=== PATIENT | female | born 1955 | race African-American/Black ===

== ENCOUNTER 2018-09-06 03:05 | Inpatient (IN) | payer MEDICARE ==
--- NOTE | 2018-09-06 03:27 | ER Document Report ---
ED General <ZURDO ASCENCIO - Last Filed: 09/06/18 05:55> <PHANI AHUJA - Last Filed: 09/06/18 07:53> - General Chief Complaint: Altered Mental Status Stated Complaint: BLOOD SUGAR PROBLEMS Time Seen by Provider: 09/06/18 03:13 Notes: Patient is a 63-year-old female who presents with complaint of being poorly responsive. Family members at bedside. She is currently visiting from out of town. She is been here since August 22. Family says since being here she sleeps most the day. When she wakes up she is alert and acts appropriately. Tonight they found her unresponsive. She would not wake up. Blood sugar was 27 for the paramedics. They did give her gone and she did she wake up; however, since then blood sugars been okay and she has returned to being somnolent and poorly responsive. She does wear CPAP at night. Found members says that she has been wearing it. In review of her medications she has a history of high blood pressure, possible coronary disease, she is on Seroquel and trazodone suggesting some history of some psychiatric illness, she has a history of diabetes, history of her blood pressure. The only sedating medicines that I see that she is on is the trazodone and Seroquel. (ZURDO ASCENCIO) - Related Data Allergies/Adverse Reactions: Penicillins Allergy (Verified 09/06/18 03:33) Past Medical History - Social History Smoking Status: Unknown if Ever Smoked Frequency of alcohol use: None Drug Abuse: None Family History: Reviewed & Not Pertinent <ZURDO ASCENCIO - Last Filed: 09/06/18 05:55> Review of Systems - Review of Systems -: Yes ROS unobtainable due to patient's medical condition - Patient is unresponsive <ZURDO ASCENCIO - Last Filed: 09/06/18 05:55> Physical Exam <ZURDO ASCENCIO - Last Filed: 09/06/18 05:55> - Vital signs Vitals: Resp Pulse Ox 24 H 94 09/06/18 03:11 09/06/18 03:11 - Notes Notes: General Appearance: Patient very somnolent. She is awake but by yelling her name but she only briefly opens her eyes and closes them again. She will not answer my questions. Vitals: reviewed, See vital signs table. Head: no swelling or tenderness to the head Eyes: PERRL, EOMI, Conjuctiva clear Mouth: No decreasd moisture Throat: No tonsillar inflammation, No airway obstruction, No lymphadenopathy Neck: Supple, no neck tenderness, No thyromegaly Lungs: No wheezing, No rales, No rhonci, No accessory muscle use, good air exchange bilaterally. Heart: Normal rate, Regular rythm, No murmur, no rub Abdomen: Normal BS, soft, No rigidity, No abdominal tenderness, No guarding, no rebound, no abdominal masses, no organomegaly Extremities: strength 5/5 in all extremities, good pulses in all extremities, no swelling or tenderness in the extremities, 1+ bilateral lower extremity edema. Skin: warm, dry, appropriate color Neuro: Patient very somnolent. Patient is arousable with verbal or painful stimuli but then falls immediately back to sleep. Pupils are equal and reactive. His difficult to get patient to follow commands to perform further neuro exam. (ZURDO ASCENCIO) Course - Laboratory Result Diagrams: 09/06/18 04:53 09/06/18 04:53 <ZURDO ASCENCIO - Last Filed: 09/06/18 05:55> - Laboratory Result Diagrams: 09/06/18 04:53 09/06/18 04:53 <PHANI AHUJA - Last Filed: 09/06/18 07:53> - Re-evaluation Re-evalutation: 09/06/18 05:55 His urinalysis did show UTI. I did start her on Rocephin. Her chest x-ray later was read as possible pneumonia. This also could be fluid. I have given her a dose of Lasix. I will cover with Levaquin as it is not 100% clear exactly which when she has. She has been placed on BiPAP due to her hypercapnia. Between her infection and her hypercapnia this would explain why she is somnolent. She is starting to become little bit more awake more often. I will contact hospitalist about admission. (ZURDO ASCENCIO) - Vital Signs Vital signs: Temp Pulse Resp BP Pulse Ox 97.4 F 75 19 144/87 H 95 09/06/18 05:30 09/06/18 07:27 09/06/18 07:01 09/06/18 07:01 09/06/18 06:20 - Laboratory Laboratory results interpreted by me: 09/06/18 09/06/18 09/06/18 03:16 04:27 04:41 WBC Hgb MCH MCHC RDW Seg Neutrophils % Lymphocytes % Absolute Neutrophils VBG pH VBG pCO2 VBG HCO3 Sodium BUN Creatinine Est GFR ( Amer) Est GFR (Non-Af Amer) POC Glucose 177 H 132 H Ammonia Urine Protein 30 H Urine Blood SMALL H Urine Nitrite POSITIVE H Ur Leukocyte Esterase MODERATE H 09/06/18 09/06/18 09/06/18 04:53 04:53 04:53 WBC 12.1 H Hgb 11.2 L MCH 25.7 L MCHC 30.6 L RDW 20.2 H Seg Neutrophils % 82.8 H Lymphocytes % 9.4 L Absolute Neutrophils 10.0 H VBG pH VBG pCO2 VBG HCO3 Sodium 145.4 H BUN 40 H Creatinine 1.59 H Est GFR ( Amer) 40 L Est GFR (Non-Af Amer) 33 L POC Glucose Ammonia < 8.7 L Urine Protein Urine Blood Urine Nitrite Ur Leukocyte Esterase 09/06/18 04:53 WBC Hgb MCH MCHC RDW Seg Neutrophils % Lymphocytes % Absolute Neutrophils VBG pH 7.22 L VBG pCO2 80.6 H* VBG HCO3 32.5 H Sodium BUN Creatinine Est GFR ( Amer) Est GFR (Non-Af Amer) POC Glucose Ammonia Urine Protein Urine Blood Urine Nitrite Ur Leukocyte Esterase - EKG Interpretation by Me Additional EKG results interpreted by me: 09/06/18 04:24 EKG is reviewed and interpreted by me. EKG shows sinus rhythm with a rate of [address] segment elevation or depression. No ischemic T wave inversions. PA interval, QRS duration are within normal range. QT interval is slightly pr olonged. No old EKG available for comparison. (ZURDO ASCENCIO) Discharge <ZURDO ASCENCIO - Last Filed: 09/06/18 05:55> - Discharge Admitting Provider: Jyoti (Hospitalist) Unit Admitted: [facility] <PHANI AHUJA - Last Filed: 09/06/18 07:53> - Discharge Clinical Impression: Acute respiratory failure with hypoxia and hypercarbia, Hypoglycemia Pneumonia Qualifiers: Pneumonia type: due to unspecified organism Laterality: unspecified laterality Lung location: unspecified part of lung Qualified Code(s): J18.9 - Pneumonia, unspecified organism UTI (urinary tract infection) Qualifiers: Urinary tract infection type: site unspecified Hematuria presence: without hematuria Qualified Code(s): N39.0 - Urinary tract infection, site not specified Condition: Fair Disposition: ADMITTED INPATIENT
[2018-09-06 05:07] LABS: ABSOLUTE EOSINOPHILS # (AUTO) 0.1 10^3/uL (0.0-0.6); ABSOLUTE LYMPHOCYTES (AUTO) 1.1 10^3/uL (0.5-4.7); ABSOLUTE MONOCYTES (AUTO) 0.8 10^3/uL (0.1-1.4); BASOPHILS % (AUTO) 0.1 % (0-2); EOSINOPHILS % (AUTO) 0.9 % (0-6); HEMATOCRIT 36.6 % (36.0-47.0); HEMOGLOBIN 11.2 g/dL (12.0-15.5); LYMPHOCYTES % (AUTO) 9.4 % (13-45); MEAN CORPUSCULAR HEMOGLOBIN 25.7 pg (27.0-33.4); MEAN CORPUSCULAR HGB CONC 30.6 g/dL (32.0-36.0); MEAN CORPUSCULAR VOLUME 84 fl (80-97); MONOCYTES % (AUTO) 6.8 % (3-13); PLATELET COUNT 200 10^3/uL (150-450); RED BLOOD COUNT 4.37 10^6/uL (3.72-5.28); RED CELL DISTRIBUTION WIDTH 20.2 % (11.5-14.0); SEGMENTED NEUTROPHILS % (AUTO) 82.8 % (42-78); TOTAL CELLS COUNTED % (AUTO) 100 %; WHITE BLOOD COUNT 12.1 10^3/uL (4.0-10.5)
[2018-09-06 05:09] LABS: APPEARANCE,URINE CLOUDY; BILIRUBIN,URINE NEGATIVE (NEGATIVE); COLOR,URINE YELLOW; GLUCOSE, URINE NEGATIVE (NEGATIVE); KETONES,URINE NEGATIVE (NEGATIVE); LEUKOCYTE ESTERASE,URINE MODERATE (NEGATIVE); NITRITE,URINE POSITIVE (NEGATIVE); PROTEIN,URINE 30 mg/dL (NEGATIVE); URINE SPECIFIC GRAVITY 1.017; UROBILINOGEN,URINE NEGATIVE mg/dL (<2.0)
[2018-09-06 05:20] LABS: VENOUS BLOOD BASE EXCESS 2.5 mmol/L; VENOUS BLOOD HCO3 32.5 mmol/L (20-32); VENOUS BLOOD PH 7.22 (7.30-7.42)
[2018-09-06 05:20] LABS: URINE AMPHETAMINES SCREEN NEGATIVE; URINE BARBITURATES SCREEN NEGATIVE; URINE BENZODIAZEPINES SCREEN NEGATIVE; URINE COCAINE SCREEN NEGATIVE; URINE MARIJUANA (THC) SCREEN NEGATIVE; URINE METHADONE SCREEN NEGATIVE; URINE PHENCYCLIDINE SCREEN NEGATIVE
[2018-09-06 05:29] LABS: VENOUS BLOOD PCO2 80.6 mmHg (35-63)
--- NOTE | 2018-09-06 05:33 | RADIOLOGY REPORT (SQ) ---
CLINICAL HISTORY: altered mental status COMPARISON: None. TECHNIQUE: CT HEAD WITHOUT IV CONTRAST on 09/06/2018 3:21 AM CDT This exam was performed according to our departmental dose-optimization program, which includes automated exposure control, adjustment of the mA and/or kV according to patient size and/or use of iterative reconstruction technique. FINDINGS: There is no acute hemorrhage, mass effect or midline shift. Bender-white differentiation is preserved. There is no hydrocephalus. There is no significant volume loss for age. There are mild patchy hypodensities within the periventricular and subcortical white matter, consistent with microangiopathic ischemic changes. The calvarium is intact. Orbits and globes are unremarkable. The paranasal sinuses are clear. Mastoid air cells are clear. IMPRESSION: No acute intracranial findings.
--- NOTE | 2018-09-06 05:34 | RADIOLOGY REPORT (SQ) ---
EXAM DESCRIPTION: XR CHEST 1 VIEW COMPLETED DATE/TME: 09/06/2018 03:21 CLINICAL HISTORY: 63 years Female, altered mental status COMPARISON: None. NUMBER OF VIEWS/TECHNIQUE: 1/AP FINDINGS: Adequate lung volume, moderate central edema pattern, moderate left lower thoracic opacity-effusion, normal cardiac silhouette, and intact bony thorax.Atherosclerotic vascular disease. IMPRESSION: Moderate mixed interstitial and airpace opacities. Differential diagnosis includes pulmonary edema, multifocal pneumonia, and chronic interstitial lung disease.
[2018-09-06 05:35] LABS: ALANINE AMINOTRANSFERASE 21 U/L (9-52); ALBUMIN 3.9 g/dL (3.5-5.0); ALKALINE PHOSPHATASE 78 U/L (38-126); ANION GAP 11 (5-19); ASPARTATE AMINO TRANSFERASE 22 U/L (14-36); BILIRUBIN,DIRECT 0.3 mg/dL (0.0-0.4); BILIRUBIN,TOTAL 0.4 mg/dL (0.2-1.3); BLOOD UREA NITROGEN 40 mg/dL (7-20); CALCIUM 9.1 mg/dL (8.4-10.2); CARBON DIOXIDE 30 mmol/L (22-30); CHLORIDE 104 mmol/L (98-107); GLUCOSE 88 mg/dL (75-110); POTASSIUM 4.6 mmol/L (3.6-5.0); SODIUM 145.4 mmol/L (137-145); TOTAL PROTEIN 6.5 g/dL (6.3-8.2)
[2018-09-06] MEDS ORDERED: FUROSEMIDE INJ/PF 20 MG/2 ML SDV IV ONE (05:54)
[2018-09-06] MEDS ORDERED: LEVOFLOXACIN 750 MG/D5W RTU 750 MG/150 ML RTUPB IV ONE (05:55)
[2018-09-06] MEDS ORDERED: CEFTRIAXONE 1 GM/D5W RTU 1 GM/50 ML RTUPB IV ONE (06:00)
[2018-09-06 06:53] LABS: FREE T4 (FREE THYROXINE) 0.78 ng/dL (0.78-2.19)
[2018-09-06 07:08] LABS: THYROID STIMULATING HORMONE 1.45 uIU/mL (0.47-4.68)
[2018-09-06] MEDS ORDERED: GLUCAGON,HUMAN RECOMB 1 MG INJ IM PRN (08:34)
[2018-09-06] MEDS ORDERED: DEXTROSE 40% GEL 15 GM TUBE PO PRN ×2 (08:34)
[2018-09-06] MEDS ORDERED: DEXTROSE 50%-WATER 25 GM/50 ML DISP.SYRIN IV PRN ×2 (08:34)
--- NOTE | 2018-09-06 09:27 | RADIOLOGY REPORT (SQ) ---
EXAM DESCRIPTION: KUB/ABDOMEN (SINGLE VIEW) COMPLETED DATE/TIME: 09/06/2018 9:12 am REASON FOR STUDY: abd distention COMPARISON: None. NUMBER OF VIEWS: One view. TECHNIQUE: Supine radiographic image of the abdomen acquired. LIMITATIONS: None. FINDINGS: BOWEL GAS PATTERN: Mild gaseous distention in the right abdomen looks like redundant colon with scattered gas-filled small bowel loops as well. Relatively nonobstructive pattern. There is m oderate to large amount of stool in the descending colon. CALCIFICATIONS: Phleboliths in the pelvis. SOFT TISSUES: No gross mass or suggestion of organomegaly. HARDWARE: None in the abdomen. BONES: No acute or suspicious findings detected. OTHER: No other significant finding. IMPRESSION: Stool retention. Mild gaseous distention. Relatively nonobstructive pattern overall. TECHNICAL DOCUMENTATION: JOB ID: [id number] [employer]- All Rights Reserved Reading location - IP/workstation name: [email or web address]
--- NOTE | 2018-09-06 09:29 | RADIOLOGY REPORT (SQ) ---
EXAM DESCRIPTION: L SPINE WHOLE COMPLETED DATE/TIME: 09/06/2018 9:12 am REASON FOR STUDY: lumbar pain COMPARISON: None. NUMBER OF VIEWS: Five views including obliques. TECHNIQUE: AP, lateral, oblique, and sacral radiographic images acquired of the lumbar spine. LIMITATIONS: None. FINDINGS: MINERALIZATION: Osteopenia. SEGMENTATION: 6 non rib-bearing lumbar type vertebrae. ALIGNMENT: Normal. VERTEBRAE: Maintained height. No fracture or worrisome bone lesion. DISCS: No bulky osteophytes. Mild disc space narrowing at several levels. POSTERIOR ELEMENTS: Dorsal decompressions with instrumentation in the lower lumbar spine. HARDWARE: Rods and screws bilaterally span the lowest 2 lumbar levels and S1. Intact without suggest ion of loosening or failure. PARASPINAL SOFT TISSUES: Normal. PELVIS: Intact as visualized. No fractures or worrisome bone lesions. SI joints intact. OTHER: No other significant finding. IMPRESSION: Postoperative and degenerative spine changes. Osteopenia. TECHNICAL DOCUMENTATION: JOB ID: [id number] [employer]- All Rights Reserved Reading location - IP/workstation name: [email or web address]
[2018-09-06] MEDS ORDERED: KETOROLAC TROMETHAMINE INJ/PF 30 MG/1 ML SDV IV ONE (09:30)
[2018-09-06] MEDS ORDERED: LIDOCAINE 5% (700 MG) TRANSDERMAL ADH..PATCH TP ONE (09:30)
[2018-09-06] MEDS ORDERED: CEFTRIAXONE 1 GM/D5W RTU 1 GM/50 ML RTUPB IV SCH (10:00)
[2018-09-06] MEDS: HEPARIN SOD (PORCINE) 5,000 UNIT/ML 1 ML SYRINGE SUBCUT SCH ×2 (10:19→21:16)
--- NOTE | 2018-09-06 10:29 | RADIOLOGY REPORT (SQ) ---
EXAM DESCRIPTION: VENOUS UNILATERAL LOWER COMPLETED DATE/TIME: 09/06/2018 10:14 am REASON FOR STUDY: RLE PAIN PER DR DAVALOS COMPARISON: None. TECHNIQUE: Dynamic and static son scale and color images acquired of the right leg venous system. S elected spectral images acquired with additional compression and augmentation maneuvers. The contrala teral common femoral vein and saphenofemoral junction were also imaged. Images stored on PACS. LIMITATIONS: None. FINDINGS: COMMON FEMORAL: Normal phasicity, compression and augmentation. No visualized echogenic ma terial on son scale. No defects on color images. FEMORAL: Normal compression and augmentation. No visualized echogenic material on son scale. No defe cts on color images. POPLITEAL: Normal compression, augmentation. No visualized echogenic material on son scale. No defec ts on color images. CALF VESSELS: Normal compression, augmentation. No visualized echogenic material on son scale. No de fects on color images. GSV and SSV: Normal compression, augmentation. No visualized echogenic material on son scale. No def ects on color images. ANY DEEP VENOUS INSUFFICIENCY: Not evaluated. ANY EVIDENCE OF POPLITEAL CYST: No. OTHER: No other significant finding. CONTRALATERAL COMMON FEMORAL VEIN AND SAPHENOFEMORAL JUNCTION: Normal phasicity, compression and augmentation. No visualized echogenic material on son scale. No de fects on color images. IMPRESSION: NO EVIDENCE DVT OR SVT IN THE RIGHT LEG. TECHNICAL DOCUMENTATION: JOB ID: [id number] [employer]- All Rights Reserved Reading location - IP/workstation name: [email or web address]
--- NOTE | 2018-09-06 10:32 | RADIOLOGY REPORT (SQ) ---
EXAM DESCRIPTION: CT CHEST WITHOUT COMPLETED DATE/TIME: 09/06/2018 9:34 am REASON FOR STUDY: hypoxia COMPARISON: None. TECHNIQUE: CT scan performed of the chest without intravenous contrast. Images reviewed with lung, soft tissue and bone windows. Reconstructed coronal and sagittal MPR images reviewed. All images st ored on PACS. All CT scanners at this facility use dose modulation, iterative reconstruction, and/or weight based d osing when appropriate to reduce radiation dose to as low as reasonably achievable (ALARA). [facility]: Dose Right [facility]: CareDose [facility]: Dose Right [facility]: Teradose 4D [facility]: [employer] RADIATION DOSE: CT Rad equipment meets quality standard of care and radiation dose reduction techniq ues were employed. CTDIvol: 21.1 mGy. DLP: 799 mGy-cm. mGy. LIMITATIONS: No technical limitations. FINDINGS: LUNGS AND PLEURA: Pulmonary vascular congestion. Airspace disease in the left lower lobe. HILAR AND MEDIASTINAL STRUCTURES: No identified masses or abnormal nodes. No obvious aneurysm. HEART AND VASCULAR STRUCTURES: Cardiomegaly. No pericardial effusion. No aneurysm. UPPER ABDOMEN: No significant findings. Limited exam. THYROID AND OTHER SOFT TISSUES: No masses. No adenopathy. BONES: No significant finding. HARDWARE: None in the chest. OTHER: No other significant findings. IMPRESSION: Cardiomegaly with pulmonary vascular congestion. No paco pulmonary edema. Airspace di sease in the left lower lobe, pneumonia versus atelectasis. TECHNICAL DOCUMENTATION: JOB ID: [id number] Quality ID # [id number]: Final reports with documentation of one or more dose reduction techniques (e.g., Au tomated exposure control, adjustment of the mA and/or kV according to patient size, use of iterative reconstruction technique) 2010 [email or web address]- All Rights Reserved Reading location - IP/workstation name: [email or web address]
[2018-09-06 11:13] LABS: ARTERIAL BLOOD BASE EXCESS 4.4 mmol/L; ARTERIAL BLOOD H2CO3 2.19 mmol/L (1.05-1.35); ARTERIAL BLOOD HCO3 33.3 mmol/L (20-24); ARTERIAL BLOOD O2 SATURATION 91.6 % (94-98); ARTERIAL BLOOD PH 7.28 (7.35-7.45); ARTERIAL BLOOD PO2 71.1 mmHg (80-100); ARTERIAL BLOOD TOTAL CO2 35.6 mmol/L (21-25)
[2018-09-06 11:14] LABS: ARTERIAL BLOOD FIO2 4L
[2018-09-06 11:15] LABS: ARTERIAL BLOOD PCO2 72.9 mmHg (35-45)
--- NOTE | 2018-09-06 14:09 | PDOC H&P ---
History of Present Illness Admission Date/PCP: 09/06/18 08:15 Patient complains of: Lethargy History of Present Illness: TRISTIAN WILKINSON is a 63 year old female with a past medical history of COPD, sleep apnea, CHF, chronic low back pain, reports history of [place] with NO prior stenting or CABG, and insulin-dependent diabetes mellitus who was brought in due to increasing lethargy at home. Family is at bedside. They report that patient has been very sleepy more than the usual in the past 2 to 3 days. She is visiting from [place]. Earlier this morning, patient was difficult to arouse and was also confused hence they called EMS. She was noted to be severely hypoglycemic with a blood sugar of 27. She requests given D50 and was also given glucagon and had improvement of her mentation. She was placed on BiPAP as her VBG showed significant elevated PCO2. Upon encounter, patient is more awake. She is oriented to person and place. She appears comfortable on BiPAP. Patient family does state that she has been having hypoglycemic issues over the past several days and her insulin was recently decreased by her PCP. They said that she has been eating fine in the past few weeks. She is on a Humalog U-500 regimen. Past Medical History Cardiac Medical History: Reports: Congestive Heart Failure, Hyperlipidema, Hypertension Pulmonary Medical History: Reports: Chronic Obstructive Pulmonary Disease (COPD) Neurological Medical History: Reports: Seizures Endocrine Medical History: Reports: Diabetes Mellitus Type 2 Social History Smoking Status: Unknown if Ever Smoked Family History Family History: Reviewed & Not Pertinent Parental Family History Reviewed: Yes Children Family History Reviewed: No Sibling(s) Family History Reviewed.: No Medication/Allergy Home Medications: Amlodipine Besylate [Norvasc 10 mg Tablet] 10 mg PO DAILY 09/06/18 Atorvastatin Calcium [Lipitor 40 mg Tablet] 40 mg PO QHS 09/06/18 Carvedilol [Coreg 25 mg Tablet] 25 mg PO Q12 09/06/18 Clopidogrel Bisulfate [Plavix 75 mg Tablet] 75 mg PO DAILY 09/06/18 Docusate Sodium [Colace 100 mg Capsule] 100 mg PO BID 09/06/18 Ergocalciferol (Vitamin D2) [Drisdol 50,000 unit (1.25MG) Capsule] 50,000 unit PO ANDRES@1000 09/06/18 Folic Acid [Folvite 1 mg Tablet] 1 mg PO DAILY 09/06/18 Furosemide [Lasix 40 mg Tablet] 40 mg PO QAM 09/06/18 Ibuprofen [Motrin 600 mg Tablet] 600 mg PO BID 09/06/18 Insulin Lispro [Humalog Kwikpen U-100] 20 unit SQ TID 09/06/18 Insulin Regular, Human [Humulin R U-500 Kwikpen] 35 unit SQ QHS 09/06/18 Insulin Regular, Human [Humulin R U-500 Kwikpen] 50 unit SQ DAILY@08,12 09/06/18 Letrozole [Femara 2.5 mg Tablet] 2.5 mg PO DAILY 09/06/18 Multivitamin [Multiple Vitamins] 1 tab PO DAILY 09/06/18 Omeprazole 20 mg PO DAILY 09/06/18 Potassium Chloride [Klor-Con 10 Meq Capsule ER] 10 meq PO DAILY 09/06/18 Pregabalin [Lyrica] 150 mg PO Q8 09/06/18 Quetiapine Fumarate [Seroquel] 300 mg PO QHS 09/06/18 Trazodone HCl [Desyrel] 100 mg PO QHS 09/06/18 Allergies/Adverse Reactions: Penicillins Allergy (Verified 09/06/18 03:33) Review of Systems All systems: reviewed and no additional remarkable complaints except as stated - as mentioned on HPI Physical Exam Vital Signs: Temp Pulse Resp BP Pulse Ox 97.4 F 75 20 144/87 H 97 09/06/18 05:30 09/06/18 07:27 09/06/18 07:52 09/06/18 07:01 09/06/18 07:52 Intake & Output 09/05/18 09/06/18 09/07/18 06:59 06:59 06:59 Intake Total 50 Balance 50 Weight 285 lb 0.923 oz General appearance: PRESENT: no acute distress, obese Head exam: PRESENT: atraumatic, normocephalic Eye exam: PRESENT: conjunctiva pink, EOMI, PERRLA. ABSENT: scleral icterus Ear exam: PRESENT: normal external ear exam Mouth exam: PRESENT: moist, tongue midline Neck exam: ABSENT: carotid bruit, JVD, lymphadenopathy, thyromegaly Respiratory exam: PRESENT: rales, rhonchi. ABSENT: wheezes Cardiovascular exam: PRESENT: RRR. ABSENT: diastolic murmur, rubs, systolic murmur Pulses: PRESENT: normal dorsalis pedis pul GI/Abdominal exam: PRESENT: normal bowel sounds, soft. ABSENT: distended, guarding, mass, organolmegaly, rebound, tenderness Rectal exam: PRESENT: deferred Extremities exam: PRESENT: +1 edema Neurological exam: PRESENT: alert, awake, oriented to person, oriented to place, CN II-XII grossly intact. ABSENT: motor sensory deficit Results Laboratory Results: 09/06/18 04:53 09/06/18 04:53 09/06/18 09/06/18 09/06/18 04:41 04:43 04:53 WBC 12.1 H RBC 4.37 Hgb 11.2 L Hct 36.6 MCV 84 MCH 25.7 L MCHC 30.6 L RDW 20.2 H Plt Count 200 Seg Neutrophils % 82.8 H Lymphocytes % 9.4 L Monocytes % 6.8 Eosinophils % 0.9 Basophils % 0.1 Absolute Neutrophils 10.0 H Absolute Lymphocytes 1.1 Absolute Monocytes 0.8 Absolute Eosinophils 0.1 Absolute Basophils 0.0 VBG pH VBG pCO2 VBG HCO3 VBG Base Excess Sodium Potassium Chloride Carbon Dioxide Anion Gap BUN Creatinine Est GFR ( Amer) Est GFR (Non-Af Amer) Glucose Calcium Total Bilirubin AST ALT Alkaline Phosphatase Ammonia Total Protein Albumin TSH 1.45 Free T4 0.78 Urine Color YELLOW Urine Appearance CLOUDY Urine pH 5.0 Ur Specific [place] 1.017 Urine Protein 30 H Urine Glucose (UA) NEGATIVE Urine Ketones NEGATIVE Urine Blood SMALL H Urine Nitrite POSITIVE H Ur Leukocyte Esterase MODERATE H Urine WBC (Auto) 59 Urine RBC (Auto) 2 09/06/18 09/06/18 09/06/18 04:53 04:53 04:53 WBC RBC Hgb Hct MCV MCH MCHC RDW Plt Count Seg Neutrophils % Lymphocytes % Monocytes % Eosinophils % Basophils % Absolute Neutrophils Absolute Lymphocytes Absolute Monocytes Absolute Eosinophils Absolute Basophils VBG pH 7.22 L VBG pCO2 80.6 H* VBG HCO3 32.5 H VBG Base Excess 2.5 Sodium 145.4 H Potassium 4.6 Chloride 104 Carbon Dioxide 30 Anion Gap 11 BUN 40 H Creatinine 1.59 H Est GFR ( Amer) 40 L Est GFR (Non-Af Amer) 33 L Glucose 88 Calcium 9.1 Total Bilirubin 0.4 AST 22 ALT 21 Alkaline Phosphatase 78 Ammonia < 8.7 L Total Protein 6.5 Albumin 3.9 TSH Free T4 Urine Color Urine Appearance Urine pH Ur Specific [place] Urine Protein Urine Glucose (UA) Urine Ketones Urine Blood Urine Nitrite Ur Leukocyte Esterase Urine WBC (Auto) Urine RBC (Auto) 09/06/18 04:53 Troponin I < 0.012 Impressions: Chest X-Ray 09/06/18 03:21 IMPRESSION: Moderate mixed interstitial and airpace opacities. Differential diagnosis includes pulmonary edema, multifocal pneumonia, and chronic interstitial lung disease. Head CT 09/06/18 03:21 IMPRESSION: No acute intracranial findings. Assessment and Plan - Diagnosis (1) Acute encephalopathy Is this a current diagnosis for this admission?: Yes Plan: Improving on BiPAP. Likely combination of severe hypoglycemia and hypercarbia. Will order an ABG. (2) Acute respiratory failure with hypoxia and hypercarbia Is this a current diagnosis for this admission?: Yes Plan: She does have BENOIT and COPD. Currently on BIPAP. Will order an ABG. (3) Hypoglycemia Is this a current diagnosis for this admission?: Yes Plan: Likely from high dose insulin regimen. Will check an Hba1c and see if she really still needs to be on a very high dose on insulin. Continue to monitor sugars q6h. (4) Insulin dependent diabetes mellitus Is this a current diagnosis for this admission?: Yes Plan: Hold home insulin regimen for now due to severe hypoglycemia. Will check an Hba1c and see if she really still needs to be on a very high dose on insulin. Continue to monitor sugars q6h. (5) Pneumonia Qualifiers: Pneumonia type: due to unspecified organism Laterality: unspecified laterality Lung location: unspecified part of lung Qualified Code(s): J18.9 - Pneumonia, unspecified organism Is this a current diagnosis for this admission?: Yes Plan: CXR shows possible pneumonia. Will continue Rocephin. Will order sputum culture. Will go ahead with a chest CT to further assess questionable infiltrate. (6) CHF (congestive heart failure) Is this a current diagnosis for this admission?: Yes Plan: Family thinks she may have CHF. She does take Lasix at home. Will request records from her PCP in [place] and obtain possible echo reports. - Time Time Spent with patient: 25-34 minutes
[2018-09-06] MEDS ORDERED: KETOROLAC TROMETHAMINE INJ/PF 30 MG/1 ML SDV IV PRN (18:42)
[2018-09-06] MEDS: FUROSEMIDE INJ/PF 40 MG/4 ML SDV IV SCH (21:15)
[2018-09-06] MEDS: PREGABALIN 75 MG CAPSULE PO SCH (21:16)
[2018-09-06] MEDS: ATORVASTATIN CALCIUM 40 MG TABLET PO SCH (21:16)
[2018-09-06] MEDS: QUETIAPINE FUMARATE 100 MG TABLET PO SCH (21:17)
[2018-09-06] MEDS ORDERED: (PENDING PHARMACY ID) (Quetiapine Fumarate [Seroquel] 300 MG) PO SCH (22:00)
[2018-09-06] MEDS: ACETAMINOPHEN 325 MG TABLET PO PRN (22:35)
[2018-09-07] MEDS ORDERED: CEFTRIAXONE 1 GM/D5W RTU 1 GM/50 ML RTUPB IV ONE (05:33)
[2018-09-07] MEDS: PREGABALIN 75 MG CAPSULE PO SCH ×3 (05:49→21:12)
[2018-09-07] MEDS: CEFTRIAXONE SODIUM 1,000 MG in DEXTROSE 5%-WATER 50 ML IV SCH (05:49)
[2018-09-07] MEDS: ACETAMINOPHEN 325 MG TABLET PO PRN (05:50)
[2018-09-07 09:42] LABS: HEMOGLOBIN 11.1 g/dL (12.0-15.5); MEAN CORPUSCULAR HEMOGLOBIN 25.8 pg (27.0-33.4); MEAN CORPUSCULAR HGB CONC 30.8 g/dL (32.0-36.0); MEAN CORPUSCULAR VOLUME 84 fl (80-97); PLATELET COUNT 193 10^3/uL (150-450); RED BLOOD COUNT 4.31 10^6/uL (3.72-5.28); WHITE BLOOD COUNT 5.7 10^3/uL (4.0-10.5)
[2018-09-07 09:50] LABS: ANION GAP 10 (5-19); BLOOD UREA NITROGEN 45 mg/dL (7-20); CARBON DIOXIDE 34 mmol/L (22-30); CHLORIDE 98 mmol/L (98-107); GLUCOSE 311 mg/dL (75-110); SODIUM 141.5 mmol/L (137-145)
--- NOTE | 2018-09-07 10:32 | EKG REPORT ---
SEVERITY:- ABNORMAL ECG - SINUS RHYTHM PROBABLE LEFT ATRIAL ABNORMALITY BORDERLINE T ABNORMALITIES, ANT-LAT LEADS BORDERLINE PROLONGED QT INTERVAL : Confirmed by: Neda Elliott 07-Sep-2018 10:31:09
[2018-09-07] MEDS: FUROSEMIDE INJ/PF 40 MG/4 ML SDV IV SCH (11:33)
[2018-09-07] MEDS: HEPARIN SOD (PORCINE) 5,000 UNIT/ML 1 ML SYRINGE SUBCUT SCH ×2 (11:34→21:10)
[2018-09-07] MEDS: POTASSIUM CHLORIDE 10 MEQ CAPSULE.ER PO SCH (11:34)
[2018-09-07] MEDS: CLOPIDOGREL BISULFATE 75 MG TABLET PO SCH (11:34)
[2018-09-07] MEDS: LETROZOLE 2.5 MG TABLET PO SCH (11:35)
[2018-09-07] MEDS ORDERED: HYDROCODONE/ACETAMINOPHEN 10-325 MG TABLET PO PRN (12:12)
--- NOTE | 2018-09-07 16:10 | PDOC PROGRESS REPORT ---
Subjective Progress Note for:: 09/07/18 Subjective:: TRISTIAN WILKINSON is a 63 year old female with a past medical history of COPD, sleep apnea, CHF, chronic low back pain, reports history of MT with NO prior stenting or CABG, and insulin-dependent diabetes mellitus who was brought in due to increasing lethargy at home. Family is at bedside. They report that patient has been very sleepy more than the usual in the past 2 to 3 days. She is visiting from [place]. Earlier this morning, patient was difficult to arouse and was also confused hence they called EMS. She was noted to be severely hypoglycemic with a blood sugar of 27. She requests given D50 and was also given glucagon and had improvement of her mentation. She was placed on BiPAP as her VBG showed significant elevated PCO2. Upon encounter, patient is more awake. She is oriented to person and place. She appears comfortable on BiPAP. Patient family does state that she has been having hypoglycemic issues over the past several days and her insulin was recently decreased by her PCP. They said that she has been eating fine in the past few weeks. She is on a Humalog U-500 regimen. 09/07/2018: Patient is improved. Her glucose levels are actually elevated. Her A1c is 7.2. She is not from this area and she is [facility] [place] [facility] She is telling me that her insulin dosage has decreased multiple times by her physician. Physical Exam Patient is no acute distress Alert oriented to time place person No anxiety or depression Head: atraumatic normocephalic Pupils: are equal reactive Neck: is supple and trachea is central no lymphadenopathy No pharyngeal erythema or exudates Heart: Regular rate and rhythm Lungs: clear no distress Abdomen: nontender nondistended Neurological exam: unremarkable Musculoskeletal: No joint swelling or effusion chronic lower back pain and tenderness No suicidal or homicidal ideation Assessment and Plan (1) Acute encephalopathy Is this a current diagnosis for this admission?: Yes Plan: Improving on BiPAP. Likely combination of severe hypoglycemia and hypercarbia. Will order an ABG. 09/07/2018: Patient is awake and alert now. (2) Acute respiratory failure with hypoxia and hypercarbia Is this a current diagnosis for this admission?: Yes Plan: She does have BENOIT and COPD. Currently on BIPAP. Will order an ABG. 09/07/2018: ABG shows hypercapnia. She was on BiPAP currently stable on nasal cannula oxygen. (3) Hypoglycemia Is this a current diagnosis for this admission?: Yes Plan: Likely from high dose insulin regimen. Will check an Hba1c and see if she really still needs to be on a very high dose on insulin. Continue to monitor sugars q6h. 09/07/18: Her glucose levels are actually increasing now. We will start Lantus at small dose. (4) Insulin dependent diabetes mellitus Is this a current diagnosis for this admission?: Yes Plan: Hold home insulin regimen for now due to severe hypoglycemia. Will check an Hba1c and see if she really still needs to be on a very high dose on insulin. Continue to monitor sugars q6h. 09/07/2018: Restart small dose Lantus due to hypoglycemia. (5) Pneumonia Qualifiers: Pneumonia type: due to unspecified organism Laterality: unspecified laterality Lung location: unspecified part of lung Qualified Code(s): J18.9 - Pneumonia, unspecified organism Is this a current diagnosis for this admission?: Yes Plan: CXR shows possible pneumonia. Will continue Rocephin. Will order sputum culture. Will go ahead with a chest CT to further assess questionable infiltrate. 09/07/2018: Continue antibiotics (6) CHF (congestive heart failure) Is this a current diagnosis for this admission?: Yes Plan: Family thinks she may have CHF. She does take Lasix at home. Will request records from her PCP in [place] and obtain possible echo reports. 09/07/2018: Continue Lasix. Monitor weight. Reason For Visit: ACUTE ENCEPHALOPATHY,SEVERE HYPOCLYCEMIA,DON Physical Exam Vital Signs: Temp Pulse Resp BP Pulse Ox 98.4 F 88 20 129/77 H 93 09/07/18 07:38 09/07/18 07:38 09/07/18 07:38 09/07/18 07:38 09/07/18 08:00 Intake & Output 09/06/18 09/07/18 09/08/18 06:59 06:59 06:59 Intake Total 250 Output Total 2700 Balance -2450 Weight 285 lb 0.923 oz 276 lb 3.827 oz Results Laboratory Results: 09/07/18 09:06 09/07/18 09:06 09/07/18 09/07/18 09:06 09:06 WBC 5.7 RBC 4.31 Hgb 11.1 L Hct 36.0 MCV 84 MCH 25.8 L MCHC 30.8 L RDW 20.0 H Plt Count 193 Sodium 141.5 Potassium 5.0 Chloride 98 Carbon Dioxide 34 H Anion Gap 10 BUN 45 H Creatinine 1.75 H Est GFR ( Amer) 36 L Est GFR (Non-Af Amer) 30 L Glucose 311 H Calcium 9.0 09/06/18 09/06/18 04:43 04:53 Troponin I < 0.012 NT-Pro-B Natriuret Pep 459 Impressions: Lumbar Spine X-Ray 09/06/18 00:00 IMPRESSION: Postoperative and degenerative spine changes. Osteopenia. Chest X-Ray 09/06/18 03:21 IMPRESSION: Moderate mixed interstitial and airpace opacities. Differential diagnosis includes pulmonary edema, multifocal pneumonia, and chronic interstitial lung disease. Head CT 09/06/18 03:21 IMPRESSION: No acute intracranial findings. KUB X-Ray 09/06/18 08:31 IMPRESSION: Stool retention. Mild gaseous distention. Relatively nonobstructive pattern overall. Chest CT 09/06/18 08:32 IMPRESSION: Cardiomegaly with pulmonary vascular congestion. No paco pulmonary edema. Airspace disease in the left lower lobe, pneumonia versus atelectasis. Venous Doppler Study 09/06/18 08:38 IMPRESSION: NO EVIDENCE DVT OR SVT IN THE RIGHT LEG. Assessment and Plan - Diagnosis (1) Acute encephalopathy Is this a current diagnosis for this admission?: Yes (2) Acute respiratory failure with hypoxia and hypercarbia Is this a current diagnosis for this admission?: Yes (3) CHF (congestive heart failure) Is this a current diagnosis for this admission?: Yes (4) Hypoglycemia Is this a current diagnosis for this admission?: Yes (5) Insulin dependent diabetes mellitus Is this a current diagnosis for this admission?: Yes (6) Pneumonia Qualifiers: Pneumonia type: due to unspecified organism Laterality: unspecified laterality Lung location: unspecified part of lung Qualified Code(s): J18.9 - Pneumonia, unspecified organism Is this a current diagnosis for this admission?: Yes
[2018-09-07] MEDS: DOCUSATE SODIUM 100 MG CAPSULE PO SCH (18:59)
[2018-09-07 19:09] LABS: ANION GAP 12 (5-19); BLOOD UREA NITROGEN 42 mg/dL (7-20); CALCIUM 8.7 mg/dL (8.4-10.2); CARBON DIOXIDE 33 mmol/L (22-30); CHLORIDE 92 mmol/L (98-107); POTASSIUM 4.6 mmol/L (3.6-5.0); SODIUM 137.1 mmol/L (137-145)
[2018-09-07] MEDS ORDERED: DIPHENHYDRAMINE HCL 50 MG/ML VIAL ONE (19:13)
[2018-09-07] MEDS ORDERED: INSULIN LISPRO 100 UNIT/ML 3 ML VIAL ONE (19:15)
[2018-09-07] MEDS: IBUPROFEN 600 MG TABLET PO SCH (19:28)
[2018-09-07 19:48] LABS: GLUCOSE 457 mg/dL (75-110)
[2018-09-07] MEDS ORDERED: DEXTROSE 50%-WATER SYRINGE 25 GM/50 ML DOSE IV PRN (20:00)
[2018-09-07] MEDS ORDERED: GLUCAGON,HUMAN RECOMB 1 MG INJ IM PRN (20:00)
[2018-09-07] MEDS ORDERED: DEXTROSE 40% GEL 15 GM TUBE X 2 PO PRN (20:00)
[2018-09-07] MEDS ORDERED: DEXTROSE 50%-WATER SYRINGE 12.5 GM/25 ML DOSE IV PRN (20:00)
[2018-09-07] MEDS ORDERED: DEXTROSE 40% GEL 15 GM TUBE PO PRN (20:00)
[2018-09-07] MEDS ORDERED: DIPHENHYDRAMINE HCL 25 MG CAPSULE PO ONE (20:30)
[2018-09-07] MEDS: HYDROCODONE/ACETAMINOPHEN 10-325 MG TABLET PO PRN (20:33)
[2018-09-07] MEDS: CARVEDILOL 12.5 MG TABLET PO SCH (21:11)
[2018-09-07] MEDS: TRAZODONE HCL 50 MG TABLET PO SCH (21:11)
[2018-09-07] MEDS: QUETIAPINE FUMARATE 100 MG TABLET PO SCH (21:11)
[2018-09-07] MEDS: ATORVASTATIN CALCIUM 40 MG TABLET PO SCH (21:11)
[2018-09-07] MEDS ORDERED: INSULIN GLARGINE,HUM.REC.ANLOG 1,000 UNIT/10 ML VIAL SUBCUT SCH (22:00)
[2018-09-07] MEDS ORDERED: (PENDING PHARMACY ID) (Trazodone Hcl [Desyrel] 100 MG) PO SCH (22:00)
[2018-09-07] MEDS ORDERED: INSULIN REG, HUMAN 100 UNIT/ML 3 ML VIAL (PYX) ONE (22:42)
[2018-09-07] MEDS ORDERED: INSULIN REG, HUMAN 100 UNIT/ML 3 ML VIAL SUBCUT ONE (22:45)
[2018-09-08] MEDS: PREGABALIN 75 MG CAPSULE PO SCH ×3 (05:11→21:40)
[2018-09-08] MEDS: CEFTRIAXONE SODIUM 1,000 MG in DEXTROSE 5%-WATER 50 ML IV SCH (05:11)
[2018-09-08 05:33] LABS: HEMATOCRIT 34.2 % (36.0-47.0); HEMOGLOBIN 10.6 g/dL (12.0-15.5); MEAN CORPUSCULAR HEMOGLOBIN 25.9 pg (27.0-33.4); MEAN CORPUSCULAR VOLUME 84 fl (80-97); PLATELET COUNT 181 10^3/uL (150-450); RED CELL DISTRIBUTION WIDTH 19.6 % (11.5-14.0); WHITE BLOOD COUNT 3.9 10^3/uL (4.0-10.5)
[2018-09-08] MEDS: INSULIN LISPRO 100 UNIT/ML 3 ML VIAL SUBCUT SCH ×3 (08:30→18:42)
[2018-09-08] MEDS: FUROSEMIDE 40 MG TABLET PO SCH (08:31)
[2018-09-08] MEDS ORDERED: DIPHENHYDRAMINE HCL 50 MG/ML VIAL ONE (10:54)
[2018-09-08] MEDS: DIPHENHYDRAMINE HCL 50 MG/ML VIAL IV PRN ×2 (10:56→18:43)
[2018-09-08] MEDS: HYDROCODONE/ACETAMINOPHEN 10-325 MG TABLET PO PRN ×2 (11:00→21:40)
[2018-09-08] MEDS: POTASSIUM CHLORIDE 10 MEQ CAPSULE.ER PO SCH (12:25)
[2018-09-08] MEDS: CLOPIDOGREL BISULFATE 75 MG TABLET PO SCH (12:25)
[2018-09-08] MEDS: PANTOPRAZOLE SODIUM 20 MG TABLET.DR PO SCH (12:25)
[2018-09-08] MEDS: LETROZOLE 2.5 MG TABLET PO SCH (12:25)
[2018-09-08] MEDS: IBUPROFEN 600 MG TABLET PO SCH ×2 (12:25→18:41)
[2018-09-08] MEDS: AMLODIPINE BESYLATE 10 MG TABLET PO SCH (12:25)
[2018-09-08] MEDS: CARVEDILOL 12.5 MG TABLET PO SCH ×2 (12:26→21:41)
[2018-09-08] MEDS: DOCUSATE SODIUM 100 MG CAPSULE PO SCH ×2 (12:26→18:42)
[2018-09-08] MEDS: FOLIC ACID 1 MG TABLET PO SCH (12:26)
[2018-09-08] MEDS: HEPARIN SOD (PORCINE) 5,000 UNIT/ML 1 ML SYRINGE SUBCUT SCH ×2 (12:27→21:43)
--- NOTE | 2018-09-08 13:42 | PDOC PROGRESS REPORT ---
Subjective Progress Note for:: 09/08/18 Subjective:: TRISTIAN WILKINSON is a 63 year old female with a past medical history of COPD, sleep apnea, CHF, chronic low back pain, reports history of TN with NO prior stenting or CABG, and insulin-dependent diabetes mellitus who was brought in due to increasing lethargy at home. Family is at bedside. They report that patient has been very sleepy more than the usual in the past 2 to 3 days. She is visiting from [place]. Earlier this morning, patient was difficult to arouse and was also confused hence they called EMS. She was noted to be severely hypoglycemic with a blood sugar of 27. She requests given D50 and was also given glucagon and had improvement of her mentation. She was placed on BiPAP as her VBG showed significant elevated PCO2. Upon encounter, patient is more awake. She is oriented to person and place. She appears comfortable on BiPAP. Patient family does state that she has been having hypoglycemic issues over the past several days and her insulin was recently decreased by her PCP. They said that she has been eating fine in the past few weeks. She is on a Humalog U-500 regimen. 09/07/2018: Patient is improved. Her glucose levels are actually elevated. Her A1c is 7.2. She is not from this area and she is from [place] [facility] She is telling me that her insulin dosage has decreased multiple times by her physician. 09/08/2018: Glucose levels are severely elevated. Will discuss with the patient apparently she was receiving 120 units of regular insulin 3 times daily then the dose was decreased to 75 units 3 times daily then further decreased to 50 units 2 times daily and 35 units at nighttime which is her current dose. Also takes 20 units of Humalog 3 times daily. Physical Exam Patient is no acute distress Alert oriented to time place person No anxiety or depression Head: atraumatic normocephalic Pupils: are equal reactive Neck: is supple and trachea is central no lymphadenopathy No pharyngeal erythema or exudates Heart: Regular rate and rhythm Lungs: clear no distress Abdomen: nontender nondistended Neurological exam: unremarkable Musculoskeletal: No joint swelling or effusion chronic lower back pain and tenderness No suicidal or homicidal ideation Assessment and Plan (1) Acute encephalopathy Is this a current diagnosis for this admission?: Yes Plan: Improving on BiPAP. Likely combination of severe hypoglycemia and hypercarbia. Will order an ABG. 09/07/2018: Patient is awake and alert now. (2) Acute respiratory failure with hypoxia and hypercarbia Is this a current diagnosis for this admission?: Yes Plan: She does have BENOIT and COPD. Currently on BIPAP. Will order an ABG. 09/07/2018: ABG shows hypercapnia. She was on BiPAP, currently stable on nasal cannula oxygen. (3) Hypoglycemia Is this a current diagnosis for this admission?: Yes Plan: Likely from high dose insulin regimen. Will check an Hba1c and see if she really still needs to be on a very high dose on insulin. Continue to monitor sugars q6h. 09/07/18: Her glucose levels are actually increasing now. We will start Lantus at small dose. 09/08/2018: Glucose levels are severely elevated. Will increase Lantus to 20 units at bedtime. (4) Insulin dependent diabetes mellitus Is this a current diagnosis for this admission?: Yes Plan: Hold home insulin regimen for now due to severe hypoglycemia. Will check an Hba1c and see if she really still needs to be on a very high dose on insulin. Continue to monitor sugars q6h. 09/07/2018: Restart small dose Lantus due to hypoglycemia. 09/08/2018: Increase Lantus to 20 units at bedtime. Continue to monitor glucose levels. (5) Pneumonia Qualifiers: Pneumonia type: due to unspecified organism Laterality: unspecified laterality Lung location: unspecified part of lung Qualified Code(s): J18.9 - Pneumonia, unspecified organism Is this a current diagnosis for this admission?: Yes Plan: CXR shows possible pneumonia. Will continue Rocephin. Will order sputum culture. Will go ahead with a chest CT to further assess questionable infiltrate. 09/07/2018: Continue antibiotics (6) CHF (congestive heart failure) Is this a current diagnosis for this admission?: Yes Plan: Family thinks she may have CHF. She does take Lasix at home. Will request records from her PCP in [place] and obtain possible echo reports. 09/07/2018: Continue Lasix. Monitor weight. Reason For Visit: ACUTE ENCEPHALOPATHY,SEVERE HYPOCLYCEMIA,DON Physical Exam Vital Signs: Temp Pulse Resp BP Pulse Ox 98.8 F 78 21 H 148/80 H 100 09/08/18 10:56 09/08/18 10:56 09/08/18 10:56 09/08/18 10:56 09/08/18 10:56 Intake & Output 09/07/18 09/08/18 09/09/18 06:59 06:59 06:59 Intake Total 250 1660 237 Output Total 2700 Balance -2450 1660 237 Weight 276 lb 3.827 oz 274 lb 11.135 oz Results Laboratory Results: 09/08/18 05:05 09/07/18 18:12 09/07/18 09/08/18 18:12 05:05 WBC 3.9 L RBC 4.10 Hgb 10.6 L Hct 34.2 L MCV 84 MCH 25.9 L MCHC 31.0 L RDW 19.6 H Plt Count 181 Sodium 137.1 Potassium 4.6 Chloride 92 L Carbon Dioxide 33 H Anion Gap 12 BUN 42 H Creatinine 1.64 H Est GFR ( Amer) 39 L Est GFR (Non-Af Amer) 32 L Glucose 457 H* Calcium 8.7 09/06/18 04:41 Catheterized Urine Urine Culture - Final Escherichia Coli 09/06/18 09/06/18 04:43 04:53 Troponin I < 0.012 NT-Pro-B Natriuret Pep 459 Impressions: Lumbar Spine X-Ray 09/06/18 00:00 IMPRESSION: Postoperative and degenerative spine changes. Osteopenia. Chest X-Ray 09/06/18 03:21 IMPRESSION: Moderate mixed interstitial and airpace opacities. Differential diagnosis includes pulmonary edema, multifocal pneumonia, and chronic interstitial lung disease. Head CT 09/06/18 03:21 IMPRESSION: No acute intracranial findings. KUB X-Ray 09/06/18 08:31 IMPRESSION: Stool retention. Mild gaseous distention. Relatively nonobstructive pattern overall. Chest CT 09/06/18 08:32 IMPRESSION: Cardiomegaly with pulmonary vascular congestion. No paco pulmonary edema. Airspace disease in the left lower lobe, pneumonia versus atelectasis. Venous Doppler Study 09/06/18 08:38 IMPRESSION: NO EVIDENCE DVT OR SVT IN THE RIGHT LEG. Assessment and Plan - Diagnosis (1) Acute encephalopathy Is this a current diagnosis for this admission?: Yes (2) Acute respiratory failure with hypoxia and hypercarbia Is this a current diagnosis for this admission?: Yes (3) CHF (congestive heart failure) Is this a current diagnosis for this admission?: Yes (4) Hypoglycemia Is this a current diagnosis for this admission?: Yes (5) Insulin dependent diabetes mellitus Is this a current diagnosis for this admission?: Yes (6) Pneumonia Qualifiers: Pneumonia type: due to unspecified organism Laterality: unspecified laterality Lung location: unspecified part of lung Qualified Code(s): J18.9 - Pneumonia, unspecified organism Is this a current diagnosis for this admission?: Yes
[2018-09-08] MEDS: QUETIAPINE FUMARATE 100 MG TABLET PO SCH (21:40)
[2018-09-08] MEDS: TRAZODONE HCL 50 MG TABLET PO SCH (21:41)
[2018-09-08] MEDS: ATORVASTATIN CALCIUM 40 MG TABLET PO SCH (21:41)
[2018-09-08] MEDS ORDERED: INSULIN GLARGINE,HUM.REC.ANLOG 1,000 UNIT/10 ML VIAL SUBCUT SCH (22:00)
[2018-09-09] MEDS: CEFTRIAXONE SODIUM 1,000 MG in DEXTROSE 5%-WATER 50 ML IV SCH (05:29)
[2018-09-09] MEDS: PREGABALIN 75 MG CAPSULE PO SCH ×3 (05:30→19:01)
[2018-09-09] MEDS: DIPHENHYDRAMINE HCL 50 MG/ML VIAL IV PRN ×3 (08:00→18:58)
[2018-09-09] MEDS ORDERED: INSULIN LISPRO 100 UNIT/ML 3 ML VIAL ONE (08:37)
[2018-09-09] MEDS: FUROSEMIDE 40 MG TABLET PO SCH (08:52)
[2018-09-09] MEDS: HYDROCODONE/ACETAMINOPHEN 10-325 MG TABLET PO PRN ×2 (08:57→21:12)
[2018-09-09] MEDS: FOLIC ACID 1 MG TABLET PO SCH (10:41)
[2018-09-09] MEDS: POTASSIUM CHLORIDE 10 MEQ CAPSULE.ER PO SCH (10:41)
[2018-09-09] MEDS: CLOPIDOGREL BISULFATE 75 MG TABLET PO SCH (10:41)
[2018-09-09] MEDS: IBUPROFEN 600 MG TABLET PO SCH ×2 (10:41→18:56)
[2018-09-09] MEDS: DOCUSATE SODIUM 100 MG CAPSULE PO SCH ×2 (10:41→18:58)
[2018-09-09] MEDS: HEPARIN SOD (PORCINE) 5,000 UNIT/ML 1 ML SYRINGE SUBCUT SCH ×2 (10:42→21:12)
[2018-09-09] MEDS: CARVEDILOL 12.5 MG TABLET PO SCH ×2 (10:42→21:12)
[2018-09-09] MEDS: AMLODIPINE BESYLATE 10 MG TABLET PO SCH (10:42)
[2018-09-09] MEDS: PANTOPRAZOLE SODIUM 20 MG TABLET.DR PO SCH (10:42)
[2018-09-09] MEDS: LETROZOLE 2.5 MG TABLET PO SCH (10:49)
--- NOTE | 2018-09-09 10:52 | PDOC PROGRESS REPORT ---
Subjective Progress Note for:: 09/09/18 Subjective:: TRISTIAN WILKINSON is a 63 year old female with a past medical history of COPD, sleep apnea, CHF, chronic low back pain, reports history of MT with NO prior stenting or CABG, and insulin-dependent diabetes mellitus who was brought in due to increasing lethargy at home. Family is at bedside. They report that patient has been very sleepy more than the usual in the past 2 to 3 days. She is visiting from [place]. Earlier this morning, patient was difficult to arouse and was also confused hence they called EMS. She was noted to be severely hypoglycemic with a blood sugar of 27. She requests given D50 and was also given glucagon and had improvement of her mentation. She was placed on BiPAP as her VBG showed significant elevated PCO2. Upon encounter, patient is more awake. She is oriented to person and place. She appears comfortable on BiPAP. Patient family does state that she has been having hypoglycemic issues over the past several days and her insulin was recently decreased by her PCP. They said that she has been eating fine in the past few weeks. She is on a Humalog U-500 regimen. 09/07/2018: Patient is improved. Her glucose levels are actually elevated. Her A1c is 7.2. She is not from this area and she is from [place] [facility] She is telling me that her insulin dosage has decreased multiple times by her physician. 09/08/2018: Glucose levels are severely elevated. Will discuss with the patient apparently she was receiving 120 units of regular insulin 3 times daily then the dose was decreased to 75 units 3 times daily then further decreased to 50 units 2 times daily and 35 units at nighttime which is her current dose. Also takes 20 units of Humalog 3 times daily. 09/09/2018: Glucose levels are still elevated. She is on 3 L of nasal cannula oxygen which is actually better than her baseline at home. She seems to be doing better. Physical Exam Patient is no acute distress Alert oriented to time place person No anxiety or depression Head: atraumatic normocephalic Pupils: are equal reactive Neck: is supple and trachea is central no lymphadenopathy No pharyngeal erythema or exudates Heart: Regular rate and rhythm Lungs: clear no distress Abdomen: nontender nondistended Neurological exam: unremarkable Musculoskeletal: No joint swelling or effusion chronic lower back pain and tenderness No suicidal or homicidal ideation Assessment and Plan (1) Acute encephalopathy Is this a current diagnosis for this admission?: Yes Plan: Improving on BiPAP. Likely combination of severe hypoglycemia and hypercarbia. Will order an ABG. 09/07/2018: Patient is awake and alert now. (2) Acute respiratory failure with hypoxia and hypercarbia Is this a current diagnosis for this admission?: Yes Plan: She does have BENOIT and COPD. Currently on BIPAP. Will order an ABG. 09/07/2018: ABG shows hypercapnia. She was on BiPAP, currently stable on nasal cannula oxygen. (3) Hypoglycemia Is this a current diagnosis for this admission?: Yes Plan: Likely from high dose insulin regimen. Will check an Hba1c and see if she really still needs to be on a very high dose on insulin. Continue to monitor sugars q6h. 09/07/18: Her glucose levels are actually increasing now. We will start Lantus at small dose. 09/08/2018: Glucose levels are severely elevated. Will increase Lantus to 20 units at bedtime. 09/09/2018: Increase Lantus to 30 units at bedtime and add pre-meal Humalog 10 units. (4) Insulin dependent diabetes mellitus Is this a current diagnosis for this admission?: Yes Plan: Hold home insulin regimen for now due to severe hypoglycemia. Will check an Hba1c and see if she really still needs to be on a very high dose on insulin. Continue to monitor sugars q6h. 09/07/2018: Restart small dose Lantus due to hypoglycemia. 09/08/2018: Increase Lantus to 20 units at bedtime. Continue to monitor glucose levels. 09/09/2018: Increase insulin dosage as above (5) Pneumonia Qualifiers: Pneumonia type: due to unspecified organism Laterality: unspecified laterality Lung location: unspecified part of lung Qualified Code(s): J18.9 - Pneumonia, unspecified organism Is this a current diagnosis for this admission?: Yes Plan: CXR shows possible pneumonia. Will continue Rocephin. Will order sputum culture. Will go ahead with a chest CT to further assess questionable infiltrate. 09/07/2018: Continue antibiotics (6) CHF (congestive heart failure) Is this a current diagnosis for this admission?: Yes Plan: Family thinks she may have CHF. She does take Lasix at home. Will request records from her PCP in [place] and obtain possible echo reports. 09/07/2018: Continue Lasix. Monitor weight. Reason For Visit: ACUTE ENCEPHALOPATHY,SEVERE HYPOCLYCEMIA,DON Physical Exam Vital Signs: Temp Pulse Resp BP Pulse Ox 97.3 F 78 16 129/87 H 95 09/09/18 08:06 09/09/18 08:06 09/09/18 08:06 09/09/18 08:06 09/09/18 08:06 Intake & Output 09/08/18 09/09/18 09/10/18 06:59 06:59 06:59 Intake Total 1660 1424 Balance 1660 1424 Weight 274 lb 11.135 oz 274 lb 11.135 oz Results Laboratory Results: 09/08/18 05:05 09/07/18 18:12 09/06/18 04:41 Catheterized Urine Urine Culture - Final Escherichia Coli 09/06/18 09/06/18 04:43 04:53 Troponin I < 0.012 NT-Pro-B Natriuret Pep 459 Impressions: Lumbar Spine X-Ray 09/06/18 00:00 IMPRESSION: Postoperative and degenerative spine changes. Osteopenia. Chest X-Ray 09/06/18 03:21 IMPRESSION: Moderate mixed interstitial and airpace opacities. Differential diagnosis includes pulmonary edema, multifocal pneumonia, and chronic interstitial lung disease. Head CT 09/06/18 03:21 IMPRESSION: No acute intracranial findings. KUB X-Ray 09/06/18 08:31 IMPRESSION: Stool retention. Mild gaseous distention. Relatively nonobstructive pattern overall. Chest CT 09/06/18 08:32 IMPRESSION: Cardiomegaly with pulmonary vascular congestion. No paco pulmonary edema. Airspace disease in the left lower lobe, pneumonia versus atelectasis. Venous Doppler Study 09/06/18 08:38 IMPRESSION: NO EVIDENCE DVT OR SVT IN THE RIGHT LEG. Assessment and Plan - Diagnosis (1) Acute encephalopathy Is this a current diagnosis for this admission?: Yes (2) Acute respiratory failure with hypoxia and hypercarbia Is this a current diagnosis for this admission?: Yes (3) CHF (congestive heart failure) Is this a current diagnosis for this admission?: Yes (4) Hypoglycemia Is this a current diagnosis for this admission?: Yes (5) Insulin dependent diabetes mellitus Is this a current diagnosis for this admission?: Yes (6) Pneumonia Qualifiers: Pneumonia type: due to unspecified organism Laterality: unspecified laterality Lung location: unspecified part of lung Qualified Code(s): J18.9 - Pneumonia, unspecified organism Is this a current diagnosis for this admission?: Yes
--- NOTE | 2018-09-09 10:56 | ADVANCED CARE ---
- Diagnosis (1) Acute encephalopathy Diagnosis Current: Yes (2) Acute respiratory failure with hypoxia and hypercarbia Diagnosis Current: Yes (3) CHF (congestive heart failure) Diagnosis Current: Yes (4) Hypoglycemia Diagnosis Current: Yes (5) Insulin dependent diabetes mellitus Diagnosis Current: Yes (6) Pneumonia Diagnosis Current: Yes Attendance: Patient Resuscitation Status: Full Code Discussion: We discussed the goals of care and CODE STATUS. We also discussed advanced care planning. Patient mentioned that she wants to continue to be full code. She would like to eventually go back to her home town after discharge. Time Spent: 17 minutes
[2018-09-09] MEDS: INSULIN LISPRO 100 UNIT/ML 3 ML VIAL SUBCUT SCH ×2 (12:36→18:57)
[2018-09-09] MEDS: TRAZODONE HCL 50 MG TABLET PO SCH (21:11)
[2018-09-09] MEDS: QUETIAPINE FUMARATE 100 MG TABLET PO SCH (21:12)
[2018-09-09] MEDS: ATORVASTATIN CALCIUM 40 MG TABLET PO SCH (21:12)
[2018-09-09] MEDS ORDERED: INSULIN GLARGINE,HUM.REC.ANLOG 1,000 UNIT/10 ML VIAL SUBCUT SCH (22:00)
[2018-09-10] MEDS: PREGABALIN 75 MG CAPSULE PO SCH ×3 (02:20→17:01)
[2018-09-10] MEDS: CEFTRIAXONE SODIUM 1,000 MG in DEXTROSE 5%-WATER 50 ML IV SCH (05:25)
[2018-09-10] MEDS: FUROSEMIDE 40 MG TABLET PO SCH (08:16)
[2018-09-10] MEDS: HYDROCODONE/ACETAMINOPHEN 10-325 MG TABLET PO PRN ×2 (08:16→17:36)
[2018-09-10] MEDS: INSULIN LISPRO 100 UNIT/ML 3 ML VIAL SUBCUT SCH ×3 (08:29→16:55)
[2018-09-10] MEDS: DIPHENHYDRAMINE HCL 50 MG/ML VIAL IV PRN ×2 (08:40→17:36)
--- NOTE | 2018-09-10 10:35 | PDOC PROGRESS REPORT ---
Subjective Progress Note for:: 09/10/18 Subjective:: TRISTIAN WILKINSON is a 63 year old female with a past medical history of COPD, sleep apnea, CHF, chronic low back pain, reports history of IA with NO prior stenting or CABG, and insulin-dependent diabetes mellitus who was brought in due to increasing lethargy at home. Family is at bedside. They report that patient has been very sleepy more than the usual in the past 2 to 3 days. She is visiting from [place]. Earlier this morning, patient was difficult to arouse and was also confused hence they called EMS. She was noted to be severely hypoglycemic with a blood sugar of 27. She requests given D50 and was also given glucagon and had improvement of her mentation. She was placed on BiPAP as her VBG showed significant elevated PCO2. Upon encounter, patient is more awake. She is oriented to person and place. She appears comfortable on BiPAP. Patient family does state that she has been having hypoglycemic issues over the past several days and her insulin was recently decreased by her PCP. They said that she has been eating fine in the past few weeks. She is on a Humalog U-500 regimen. 09/07/2018: Patient is improved. Her glucose levels are actually elevated. Her A1c is 7.2. She is not from this area and she is from [place] and here visit [place]. She is telling me that her insulin dosage has decreased multiple times by her physician. 09/08/2018: Glucose levels are severely elevated. Will discuss with the patient apparently she was receiving 120 units of regular insulin 3 times daily then the dose was decreased to 75 units 3 times daily then further decreased to 50 units 2 times daily and 35 units at nighttime which is her current dose. Also takes 20 units of Humalog 3 times daily. 09/09/2018: Glucose levels are still elevated. She is on 3 L of nasal cannula oxygen which is actually better than her baseline at home. She seems to be doing better. 09/10/2018: Patient is stable on nasal cannula oxygen same as home. Glucose leve ls are still elevated in the 300s but improved from prior. She is currently on 30 units of Lantus and 10 units of Humalog before meals. Physical Exam Patient is no acute distress Alert oriented to time place person No anxiety or depression Head: atraumatic normocephalic Pupils: are equal reactive Neck: is supple and trachea is central no lymphadenopathy No pharyngeal erythema or exudates Heart: Regular rate and rhythm Lungs: clear no distress Abdomen: nontender nondistended Neurological exam: unremarkable Musculoskeletal: No joint swelling or effusion chronic lower back pain and tenderness No suicidal or homicidal ideation Assessment and Plan (1) Acute encephalopathy Is this a current diagnosis for this admission?: Yes Plan: Improving on BiPAP. Likely combination of severe hypoglycemia and hypercarbia. Will order an ABG. 09/07/2018: Patient is awake and alert now. (2) Acute respiratory failure with hypoxia and hypercarbia Is this a current diagnosis for this admission?: Yes Plan: She does have BENOIT and COPD. Currently on BIPAP. Will order an ABG. 09/07/2018: ABG shows hypercapnia. She was on BiPAP, currently stable on nasal cannula oxygen. (3) Hypoglycemia Is this a current diagnosis for this admission?: Yes Plan: Likely from high dose insulin regimen. Will check an Hba1c and see if she really still needs to be on a very high dose on insulin. Continue to monitor sugars q6h. 09/07/18: Her glucose levels are actually increasing now. We will start Lantus at small dose. 09/08/2018: Glucose levels are severely elevated. Will increase Lantus to 20 units at bedtime. 09/09/2018: Increase Lantus to 30 units at bedtime and add pre-meal Humalog 10 units. 09/10/2018: Increase Lantus to 45 units at bedtime and increase Humalog to 15 units before meals. Continue to monitor glucose levels (4) Insulin dependent diabetes mellitus Is this a current diagnosis for this admission?: Yes Plan: Hold home insulin regimen for now due to severe hypoglycemia. Will check an Hba1c and see if she really still needs to be on a very high dose on insulin. Continue to monitor sugars q6h. 09/07/2018: Restart small dose Lantus due to hypoglycemia. 09/08/2018: Increase Lantus to 20 units at bedtime. Continue to monitor glucose levels. 09/09/2018: Increase insulin dosage as above (5) Pneumonia Qualifiers: Pneumonia type: due to unspecified organism Laterality: unspecified laterality Lung location: unspecified part of lung Qualified Code(s): J18.9 - Pneumonia, unspecified organism Is this a current diagnosis for this admission?: Yes Plan: CXR shows possible pneumonia. Will continue Rocephin. Will order sputum culture. Will go ahead with a chest CT to further assess questionable infiltrate. 09/07/2018: Continue antibiotics (6) CHF (congestive heart failure) Is this a current diagnosis for this admission?: Yes Plan: Family thinks she may have CHF. She does take Lasix at home. Will request records from her PCP in [place] and obtain possible echo reports. 09/07/2018: Continue Lasix. Monitor weight. Reason For Visit: ACUTE ENCEPHALOPATHY,SEVERE HYPOCLYCEMIA,DON Physical Exam Vital Signs: Temp Pulse Resp BP Pulse Ox 98.7 F 74 15 135/65 H 99 09/10/18 07:56 09/10/18 07:56 09/10/18 07:56 09/10/18 07:56 09/10/18 07:56 Intake & Output 09/09/18 09/10/18 09/11/18 06:59 06:59 06:59 Intake Total 1424 1254 Balance 1424 1254 Weight 274 lb 11.135 oz 278 lb 0.046 oz Results Laboratory Results: 09/08/18 05:05 09/07/18 18:12 09/06/18 09/06/18 04:43 04:53 Troponin I < 0.012 NT-Pro-B Natriuret Pep 459 Impressions: Lumbar Spine X-Ray 09/06/18 00:00 IMPRESSION: Postoperative and degenerative spine changes. Osteopenia. Chest X-Ray 09/06/18 03:21 IMPRESSION: Moderate mixed interstitial and airpace opacities. Differential diagnosis includes pulmonary edema, multifocal pneumonia, and chronic interstitial lung disease. Head CT 09/06/18 03:21 IMPRESSION: No acute intracranial findings. KUB X-Ray 09/06/18 08:31 IMPRESSION: Stool retention. Mild gaseous distention. Relatively nonobstructi ve pattern overall. Chest CT 09/06/18 08:32 IMPRESSION: Cardiomegaly with pulmonary vascular congestion. No paco pulmonary edema. Airspace disease in the left lower lobe, pneumonia versus atelectasis. Venous Doppler Study 09/06/18 08:38 IMPRESSION: NO EVIDENCE DVT OR SVT IN THE RIGHT LEG. Assessment and Plan - Diagnosis (1) Acute encephalopathy Is this a current diagnosis for this admission?: Yes (2) Acute respiratory failure with hypoxia and hypercarbia Is this a current diagnosis for this admission?: Yes (3) CHF (congestive heart failure) Is this a current diagnosis for this admission?: Yes (4) Hypoglycemia Is this a current diagnosis for this admission?: Yes (5) Insulin dependent diabetes mellitus Is this a current diagnosis for this admission?: Yes (6) Pneumonia Qualifiers: Pneumonia type: due to unspecified organism Laterality: unspecified laterality Lung location: unspecified part of lung Qualified Code(s): J18.9 - Pneumonia, unspecified organism Is this a current diagnosis for this admission?: Yes
[2018-09-10] MEDS: HEPARIN SOD (PORCINE) 5,000 UNIT/ML 1 ML SYRINGE SUBCUT SCH ×2 (10:37→21:13)
[2018-09-10] MEDS: LETROZOLE 2.5 MG TABLET PO SCH (10:38)
[2018-09-10] MEDS: POTASSIUM CHLORIDE 10 MEQ CAPSULE.ER PO SCH (10:38)
[2018-09-10] MEDS: FOLIC ACID 1 MG TABLET PO SCH (10:39)
[2018-09-10] MEDS: IBUPROFEN 600 MG TABLET PO SCH ×2 (10:39→17:01)
[2018-09-10] MEDS: CARVEDILOL 12.5 MG TABLET PO SCH ×2 (10:40→21:13)
[2018-09-10] MEDS: CLOPIDOGREL BISULFATE 75 MG TABLET PO SCH (10:40)
[2018-09-10] MEDS: AMLODIPINE BESYLATE 10 MG TABLET PO SCH (10:40)
[2018-09-10] MEDS: PANTOPRAZOLE SODIUM 20 MG TABLET.DR PO SCH (10:41)
[2018-09-10] MEDS: DOCUSATE SODIUM 100 MG CAPSULE PO SCH ×2 (10:41→17:00)
[2018-09-10] MEDS ORDERED: FLUCONAZOLE 100 MG TABLET PO ONE (15:00)
[2018-09-10 15:31] LABS: ANION GAP 14 (5-19); BLOOD UREA NITROGEN 39 mg/dL (7-20); CALCIUM 9.8 mg/dL (8.4-10.2); CARBON DIOXIDE 34 mmol/L (22-30); CHLORIDE 93 mmol/L (98-107); GLUCOSE 288 mg/dL (75-110); POTASSIUM 4.6 mmol/L (3.6-5.0); SODIUM 141.1 mmol/L (137-145)
[2018-09-10] MEDS: QUETIAPINE FUMARATE 100 MG TABLET PO SCH (21:12)
[2018-09-10] MEDS: TRAZODONE HCL 50 MG TABLET PO SCH (21:13)
[2018-09-10] MEDS: ATORVASTATIN CALCIUM 40 MG TABLET PO SCH (21:13)
[2018-09-10] MEDS ORDERED: INSULIN GLARGINE,HUM.REC.ANLOG 1,000 UNIT/10 ML VIAL SUBCUT SCH ×2 (22:00)
[2018-09-11] MEDS: PREGABALIN 75 MG CAPSULE PO SCH ×3 (02:59→16:51)
[2018-09-11] MEDS: HYDROCODONE/ACETAMINOPHEN 10-325 MG TABLET PO PRN ×3 (03:02→21:16)
[2018-09-11 04:28] LABS: HEMATOCRIT 36.4 % (36.0-47.0); HEMOGLOBIN 11.5 g/dL (12.0-15.5); MEAN CORPUSCULAR HEMOGLOBIN 25.8 pg (27.0-33.4); MEAN CORPUSCULAR HGB CONC 31.5 g/dL (32.0-36.0); MEAN CORPUSCULAR VOLUME 82 fl (80-97); PLATELET COUNT 200 10^3/uL (150-450); RED BLOOD COUNT 4.43 10^6/uL (3.72-5.28); RED CELL DISTRIBUTION WIDTH 19.3 % (11.5-14.0); WHITE BLOOD COUNT 4.9 10^3/uL (4.0-10.5)
[2018-09-11] MEDS: CEFTRIAXONE SODIUM 1,000 MG in DEXTROSE 5%-WATER 50 ML IV SCH (05:37)
[2018-09-11] MEDS: FUROSEMIDE 40 MG TABLET PO SCH (09:32)
[2018-09-11] MEDS: INSULIN LISPRO 100 UNIT/ML 3 ML VIAL SUBCUT SCH ×3 (09:32→16:52)
[2018-09-11] MEDS ORDERED: ERGOCALCIFEROL (VITAMIN D2) 50000 UNIT (1.25 MG) CAPSULE PO SCH (10:00)
[2018-09-11] MEDS: AMLODIPINE BESYLATE 10 MG TABLET PO SCH (10:21)
[2018-09-11] MEDS: DOCUSATE SODIUM 100 MG CAPSULE PO SCH ×2 (10:21→17:01)
[2018-09-11] MEDS: POTASSIUM CHLORIDE 10 MEQ CAPSULE.ER PO SCH (10:21)
[2018-09-11] MEDS: LETROZOLE 2.5 MG TABLET PO SCH (10:22)
[2018-09-11] MEDS: CLOPIDOGREL BISULFATE 75 MG TABLET PO SCH (10:22)
[2018-09-11] MEDS: FOLIC ACID 1 MG TABLET PO SCH (10:22)
[2018-09-11] MEDS: PANTOPRAZOLE SODIUM 20 MG TABLET.DR PO SCH (10:22)
[2018-09-11] MEDS: IBUPROFEN 600 MG TABLET PO SCH ×2 (10:22→17:01)
[2018-09-11] MEDS: CARVEDILOL 12.5 MG TABLET PO SCH ×2 (10:23→21:15)
[2018-09-11] MEDS: HEPARIN SOD (PORCINE) 5,000 UNIT/ML 1 ML SYRINGE SUBCUT SCH ×2 (10:23→21:16)
--- NOTE | 2018-09-11 10:58 | PDOC PROGRESS REPORT ---
Subjective Progress Note for:: 09/11/18 Subjective:: TRISTIAN WILKINSON is a 63 year old female with a past medical history of COPD, sleep apnea, CHF, chronic low back pain, reports history of [place] with NO prior stenting or CABG, and insulin-dependent diabetes mellitus who was brought in due to increasing lethargy at home. Family is at bedside. They report that patient has been very sleepy more than the usual in the past 2 to 3 days. She is visiting from [place]. Earlier this morning, patient was difficult to arouse and was also confused hence they called EMS. She was noted to be severely hypoglycemic with a blood sugar of 27. She requests given D50 and was also given glucagon and had improvement of her mentation. She was placed on BiPAP as her VBG showed significant elevated PCO2. Upon encounter, patient is more awake. She is oriented to person and place. She appears comfortable on BiPAP. Patient family does state that she has been having hypoglycemic issues over the past several days and her insulin was recently decreased by her PCP. They said that she has been eating fine in the past few weeks. She is on a Humalog U-500 regimen. 09/07/2018: Patient is improved. Her glucose levels are actually elevated. Her A1c is 7.2. She is not from this area and she is from [place] and here [place]. She is telling me that her insulin dosage has decreased multiple times by her physician. 09/08/2018: Glucose levels are severely elevated. Will discuss with the patient apparently she was receiving 120 units of regular insulin 3 times daily then the dose was decreased to 75 units 3 times daily then further decreased to 50 units 2 times daily and 35 units at nighttime which is her current dose. Also takes 20 units of Humalog 3 times daily. 09/09/2018: Glucose levels are still elevated. She is on 3 L of nasal cannula oxygen which is actually better than her baseline at home. She seems to be doing better. 09/10/2018: Patient is stable on nasal cannula oxygen same as home. Glucose leve ls are still elevated in the 300s but improved from prior. She is currently on 30 units of Lantus and 10 units of Humalog before meals. 09/11/2018: Glucose levels are still elevated in the mid 300s. He is currently on 45 units of Lantus and 15 units of Humalog before meals. Physical Exam Patient is no acute distress Alert oriented to time place person No anxiety or depression Head: atraumatic normocephalic Pupils: are equal reactive Neck: is supple and trachea is central no lymphadenopathy No pharyngeal erythema or exudates Heart: Regular rate and rhythm Lungs: clear no distress Abdomen: nontender nondistended Neurological exam: unremarkable Musculoskeletal: No joint swelling or effusion chronic lower back pain and tenderness No suicidal or homicidal ideation Assessment and Plan (1) Acute encephalopathy Is this a current diagnosis for this admission?: Yes Plan: Improving on BiPAP. Likely combination of severe hypoglycemia and hypercarbia. Will order an ABG. 09/07/2018: Patient is awake and alert now. (2) Acute respiratory failure with hypoxia and hypercarbia Is this a current diagnosis for this admission?: Yes Plan: She does have BENOIT and COPD. Currently on BIPAP. Will order an ABG. 09/07/2018: ABG shows hypercapnia. She was on BiPAP, currently stable on nasal cannula oxygen. (3) Hypoglycemia Is this a current diagnosis for this admission?: Yes Plan: Likely from high dose insulin regimen. Will check an Hba1c and see if she really still needs to be on a very high dose on insulin. Continue to monitor sugars q6h. 09/07/18: Her glucose levels are actually increasing now. We will start Lantus at small dose. 09/08/2018: Glucose levels are severely elevated. Will increase Lantus to 20 units at bedtime. 09/09/2018: Increase Lantus to 30 units at bedtime and add pre-meal Humalog 10 units. 09/10/2018: Increase Lantus to 45 units at bedtime and increase Humalog to 15 units before meals. Continue to monitor glucose levels 09/11/2018:: Patient is currently hyperglycemic (4) Insulin dependent diabetes mellitus Is this a current diagnosis for this admission?: Yes Plan: Hold home insulin regimen for now due to severe hypoglycemia. Will check an Hba1c and see if she really still needs to be on a very high dose on insulin. Continue to monitor sugars q6h. 09/07/2018: Restart small dose Lantus due to hypoglycemia. 09/08/2018: Increase Lantus to 20 units at bedtime. Continue to monitor glucose levels. 09/09/2018: Increase insulin dosage as above 09/11/2018: Glucose levels are still in the mid 300s. Increase Lantus to 60 units and Humalog to 20 units before meals. Monitor glucose levels. (5) Pneumonia Qualifiers: Pneumonia type: due to unspecified organism Laterality: unspecified laterality Lung location: unspecified part of lung Qualified Code(s): J18.9 - Pneumonia, unspecified organism Is this a current diagnosis for this admission?: Yes Plan: CXR shows possible pneumonia. Will continue Rocephin. Will order sputum culture. Will go ahead with a chest CT to further assess questionable infiltrate. 09/07/2018: Continue antibiotics (6) CHF (congestive heart failure) Is this a current diagnosis for this admission?: Yes Plan: Family thinks she may have CHF. She does take Lasix at home. Will request records from her PCP in [place] and obtain possible echo reports. 09/07/2018: Continue Lasix. Monitor weight. Reason For Visit: ACUTE ENCEPHALOPATHY,SEVERE HYPOCLYCEMIA,DON Physical Exam Vital Signs: Temp Pulse Resp BP Pulse Ox 97.2 F 71 16 119/70 95 09/11/18 07:29 09/11/18 07:29 09/11/18 07:29 09/11/18 07:29 09/11/18 07:52 Intake & Output 09/10/18 09/11/18 09/12/18 06:59 06:59 06:59 Intake Total 1254 992 Balance 1254 992 Weight 278 lb 0.046 oz Results Laboratory Results: 09/11/18 04:13 09/10/18 14:36 09/10/18 09/11/18 14:36 04:13 WBC 4.9 RBC 4.43 Hgb 11.5 L Hct 36.4 MCV 82 MCH 25.8 L MCHC 31.5 L RDW 19.3 H Plt Count 200 Sodium 141.1 Potassium 4.6 Chloride 93 L Carbon Dioxide 34 H Anion Gap 14 BUN 39 H Creatinine 1.29 H Est GFR ( Amer) 51 L Est GFR (Non-Af Amer) 42 L Glucose 288 H Calcium 9.8 09/06/18 06:45 Blood Blood Culture - Final NO GROWTH IN 5 DAYS 09/06/18 04:53 Blood Blood Culture - Final NO GROWTH IN 5 DAYS 09/06/18 09/06/18 04:43 04:53 Troponin I < 0.012 NT-Pro-B Natriuret Pep 459 Impressions: Lumbar Spine X-Ray 09/06/18 00:00 IMPRESSION: Postoperative and degenerative spine changes. Osteopenia. Chest X-Ray 09/06/18 03:21 IMPRESSION: Moderate mixed interstitial and airpace opacities. Differential diagnosis includes pulmonary edema, multifocal pneumonia, and chronic interstitial lung disease. Head CT 09/06/18 03:21 IMPRESSION: No acute intracranial findings. KUB X-Ray 09/06/18 08:31 IMPRESSION: Stool retention. Mild gaseous distention. Relatively nonobstructive pattern overall. Chest CT 09/06/18 08:32 IMPRESSION: Cardiomegaly with pulmonary vascular congestion. No paco pulmonary edema. Airspace disease in the left lower lobe, pneumonia versus atelectasis. Venous Doppler Study 09/06/18 08:38 IMPRESSION: NO EVIDENCE DVT OR SVT IN THE RIGHT LEG. Assessment and Plan - Diagnosis (1) Acute encephalopathy Is this a current diagnosis for this admission?: Yes (2) Acute respiratory failure with hypoxia and hypercarbia Is this a current diagnosis for this admission?: Yes (3) CHF (congestive heart failure) Is this a current diagnosis for this admission?: Yes (4) Hypoglycemia Is this a current diagnosis for this admission?: Yes (5) Insulin dependent diabetes mellitus Is this a current diagnosis for this admission?: Yes (6) Pneumonia Qualifiers: Pneumonia type: due to unspecified organism Laterality: unspecified laterality Lung location: unspecified part of lung Qualified Code(s): J18.9 - Pneumonia, unspecified organism Is this a current diagnosis for this admission?: Yes
[2018-09-11] MEDS: QUETIAPINE FUMARATE 100 MG TABLET PO SCH (21:15)
[2018-09-11] MEDS: TRAZODONE HCL 50 MG TABLET PO SCH (21:15)
[2018-09-11] MEDS: ATORVASTATIN CALCIUM 40 MG TABLET PO SCH (21:15)
[2018-09-11] MEDS: INSULIN GLARGINE,HUM.REC.ANLOG 1,000 UNIT/10 ML VIAL SUBCUT SCH (21:51)
[2018-09-12] MEDS: PREGABALIN 75 MG CAPSULE PO SCH ×3 (01:42→17:19)
[2018-09-12] MEDS: CEFTRIAXONE SODIUM 1,000 MG in DEXTROSE 5%-WATER 50 ML IV SCH (05:27)
[2018-09-12] MEDS: FUROSEMIDE 40 MG TABLET PO SCH (08:08)
[2018-09-12] MEDS: INSULIN LISPRO 100 UNIT/ML 3 ML VIAL SUBCUT SCH ×3 (08:09→17:20)
[2018-09-12] MEDS: FOLIC ACID 1 MG TABLET PO SCH (10:18)
[2018-09-12] MEDS: CARVEDILOL 12.5 MG TABLET PO SCH ×2 (10:19→22:30)
[2018-09-12] MEDS ORDERED: DEXTROSE 40% GEL 15 GM TUBE PO PRN ×2 (10:19)
[2018-09-12] MEDS: HEPARIN SOD (PORCINE) 5,000 UNIT/ML 1 ML SYRINGE SUBCUT SCH ×2 (10:19→22:32)
[2018-09-12] MEDS ORDERED: GLUCAGON,HUMAN RECOMB 1 MG INJ IM PRN (10:19)
[2018-09-12] MEDS: CLOPIDOGREL BISULFATE 75 MG TABLET PO SCH (10:19)
[2018-09-12] MEDS: AMLODIPINE BESYLATE 10 MG TABLET PO SCH (10:19)
[2018-09-12] MEDS: DOCUSATE SODIUM 100 MG CAPSULE PO SCH ×2 (10:19→17:19)
[2018-09-12] MEDS: PANTOPRAZOLE SODIUM 20 MG TABLET.DR PO SCH (10:19)
[2018-09-12] MEDS ORDERED: DEXTROSE 50%-WATER 25 GM/50 ML DISP.SYRIN IV PRN ×2 (10:19)
[2018-09-12] MEDS: POTASSIUM CHLORIDE 10 MEQ CAPSULE.ER PO SCH (10:19)
[2018-09-12] MEDS: LETROZOLE 2.5 MG TABLET PO SCH (10:23)
--- NOTE | 2018-09-12 10:30 | PDOC PROGRESS REPORT ---
Subjective Progress Note for:: 09/12/18 Subjective:: 63 year old female with a past medical history of COPD, sleep apnea, CHF, chronic low back pain, reports history of IA with NO prior stenting or CABG, and insulin-dependent diabetes mellitus who was brought in due to increasing lethargy at home. Family is at bedside. They report that patient has been very sleepy more than the usual in the past 2 to 3 days. She is visiting from [place]. Earlier this morning, patient was difficult to arouse and was also confused hence they called EMS. She was noted to be severely hypoglycemic with a blood sugar of 27. She requests given D50 and was also given glucagon and had improvement of her mentation. She was placed on BiPAP as her VBG showed significant elevated PCO2. Upon encounter, patient is more awake. She is oriented to person and place. She appears comfortable on BiPAP. Patient family does state that she has been having hypoglycemic issues over the past several days and her insulin was recently decreased by her PCP. They said that she has been eating fine in the past few weeks. She is on a Humalog U-500 regimen. 09/07/2018: Patient is improved. Her glucose levels are actually elevated. Her A1c is 7.2. She is not from this area and she is from [place] and here visiting. She is telling me that her insulin dosage has decreased multiple times by her physician. 09/08/2018: Glucose levels are severely elevated. Will discuss with the patient apparently she was receiving 120 units of regular insulin 3 times daily then the dose was decreased to 75 units 3 times daily then further decreased to 50 units 2 times daily and 35 units at nighttime which is her current dose. Also takes 20 units of Humalog 3 times daily. 09/09/2018: Glucose levels are still elevated. She is on 3 L of nasal cannula oxygen which is actually better than her baseline at home. She seems to be doing better. 09/10/2018: Patient is stable on nasal cannula oxygen same as home. Glucose levels are still elevated in the 300s but improved from prior. She is currently on 30 units of Lantus and 10 units of Humalog before meals. 09/11/2018: Glucose levels are still elevated in the mid 300s. He is currently on 45 units of Lantus and 15 units of Humalog before meals. 09/12/2018-obese female comfortable in the chair sleeping well. Expressing desire to go home. She is admitted with increasing lethargy at home. Blood sugars are still the problem latest blood sugar is 338. Presently on 60 units of Lantus at night 120 units in the morning. Plan to check the hemoglobin A1c started on insulin sliding scale before meals and at bedtime. Acute events in the last 24 hours afebrile. Reason For Visit: ACUTE ENCEPHALOPATHY,SEVERE HYPOCLYCEMIA,DON Physical Exam Vital Signs: Temp Pulse Resp BP Pulse Ox 98.2 F 79 20 119/56 L 95 09/12/18 07:26 09/12/18 07:26 09/12/18 07:26 09/12/18 07:26 09/12/18 08:00 Intake & Output 09/11/18 09/12/18 09/13/18 06:59 06:59 06:59 Intake Total 992 459 50 Output Total 600 Balance 992 -141 50 General appearance: PRESENT: no acute distress, morbidly obese Head exam: PRESENT: atraumatic Eye exam: PRESENT: PERRLA Ear exam: PRESENT: normal external ear exam Mouth exam: PRESENT: moist, tongue midline Neck exam: ABSENT: carotid bruit, JVD, lymphadenopathy, thyromegaly Respiratory exam: PRESENT: clear to auscultation ernie. ABSENT: rales, rhonchi, wheezes Cardiovascular exam: PRESENT: RRR. ABSENT: diastolic murmur, rubs, systolic murmur GI/Abdominal exam: PRESENT: normal bowel sounds, soft. ABSENT: distended, guarding, mass, organolmegaly, rebound, tenderness Rectal exam: PRESENT: deferred Extremities exam: PRESENT: full ROM. ABSENT: calf tenderness, clubbing, pedal edema Neurological exam: PRESENT: alert, awake, oriented to person, oriented to place, oriented to time, oriented to situation, CN II-XII grossly intact. ABSENT: motor sensory deficit Psychiatric exam: PRESENT: appropriate affect, normal mood. ABSENT: homicidal ideation, suicidal ideation Results Laboratory Results: 09/11/18 04:13 09/10/18 14:36 09/06/18 06:45 Blood Blood Culture - Final NO GROWTH IN 5 DAYS 09/06/18 09/06/18 04:43 04:53 Troponin I < 0.012 NT-Pro-B Natriuret Pep 459 Impressions: Lumbar Spine X-Ray 09/06/18 00:00 IMPRESSION: Postoperative and degenerative spine changes. Osteopenia. Chest X-Ray 09/06/18 03:21 IMPRESSION: Moderate mixed interstitial and airpace opacities. Differential diagnosis includes pulmonary edema, multifocal pneumonia, and chronic interstitial lung disease. Head CT 09/06/18 03:21 IMPRESSION: No acute intracranial findings. KUB X-Ray 09/06/18 08:31 IMPRESSION: Stool retention. Mild gaseous distention. Relatively nonobstructive pattern overall. Chest CT 09/06/18 08:32 IMPRESSION: Cardiomegaly with pulmonary vascular congestion. No paco pulmonary edema. Airspace disease in the left lower lobe, pneumonia versus atelectasis. Venous Doppler Study 09/06/18 08:38 IMPRESSION: NO EVIDENCE DVT OR SVT IN THE RIGHT LEG. Assessment and Plan - Diagnosis (1) Acute encephalopathy Is this a current diagnosis for this admission?: Yes Plan: Improving on BiPAP. Likely combination of severe hypoglycemia and hypercarbia. Will order an ABG. 09/12/2018-this elderly female with multiple medical problems admitted with acute and coagulopathy most likely multifactorial with hyper Anemia and severe hypoglycemia. Hypoglycemia is resolved blood sugar is 338 this morning. Socks is 92% on 3 L.pulse ox is 92% on 3 lts. (2) Acute respiratory failure with hypoxia and hypercarbia Is this a current diagnosis for this admission?: Yes Plan: She does have BENOIT and COPD. Currently on BIPAP. Will order an ABG. 09/12/2018-this elderly female admitted with acute respiratory failure with hypoxia and hypercapnia most likely secondary to COPD exacerbation she also has history of obstructive sleep apnea we are going to check for the home oxygen requirements. (3) Insulin dependent diabetes mellitus Is this a current diagnosis for this admission?: Yes Plan: Hold home insulin regimen for now due to severe hypoglycemia. Will check an Hba1c and see if she really still needs to be on a very high dose on insulin. Continue to monitor sugars q6h. 2018-patient has history of insulin-dependent diabetes mellitus blood sugar this morning is 338 presently on 60 units of Lantus at night and 20 units in the morning diet exercise weight loss lifestyle modifications are discussed with the patient dietary consult was requested to check for hemoglobin A1c. Started insu luis sliding scale before meals and at bedtime with low-dose coverage. (4) Morbid obesity Is this a current diagnosis for this admission?: No Plan: 09/12/2018-patient has history of morbid obesity BMI is close to 45. Dietary consult was requested. (5) Pneumonia Qualifiers: Pneumonia type: due to unspecified organism Laterality: unspecified laterality Lung location: unspecified part of lung Qualified Code(s): J18.9 - Pneumonia, unspecified organism Is this a current diagnosis for this admission?: Yes Plan: CXR shows possible pneumonia. Will continue Rocephin. Will order sputum culture. Will go ahead with a chest CT to further assess questionable infiltrate. 09/12/2018-admission chest x-ray suggestive of possible pneumonia. She was treated with IV Rocephin. Cultures are requested. CT scan of the chest suggestive left lower lobe pneumonia. Most likely community-acquired pneumonia. Most likely gram-positive organisms are responsible. Cultures are negative. (6) UTI (urinary tract infection) Is this a current diagnosis for this admission?: Yes Plan: 09/12/2018-urine culture came back positive for E. coli. Sensitivity to IV Rocephin. Plan is to continue IV Rocephin. (7) CHF (congestive heart failure) Is this a current diagnosis for this admission?: Yes Plan: Family thinks she may have CHF. She does take Lasix at home. Will request records from her PCP in [place] and obtain possible echo reports. 09/12/2018-patient and family given the history of chronic congestive heart failure. She takes Lasix at home. CT chest on admission shows pulmonary vascular congestion/edema with cardiomegaly. Elevated BNP. Most likely she has chronic systolic heart failure. Patient is euvolemic during the examination today. - Time Time Spent with patient: 25-34 minutes Medications reviewed and adjusted accordingly: Yes Anticipated discharge: Home
[2018-09-12] MEDS: HYDROCODONE/ACETAMINOPHEN 10-325 MG TABLET PO PRN ×2 (10:40→23:11)
[2018-09-12] MEDS: IBUPROFEN 600 MG TABLET PO SCH (10:55)
[2018-09-12] MEDS: INSULIN REG, HUMAN 100 UNIT/ML 3 ML VIAL (PYX) SUBCUT SCH ×3 (12:06→22:33)
[2018-09-12] MEDS: ATORVASTATIN CALCIUM 40 MG TABLET PO SCH (22:30)
[2018-09-12] MEDS: TRAZODONE HCL 50 MG TABLET PO SCH (22:31)
[2018-09-12] MEDS: QUETIAPINE FUMARATE 100 MG TABLET PO SCH (22:31)
[2018-09-12] MEDS: INSULIN GLARGINE,HUM.REC.ANLOG 1,000 UNIT/10 ML VIAL SUBCUT SCH (22:31)
[2018-09-13] MEDS: PREGABALIN 75 MG CAPSULE PO SCH ×3 (03:01→17:54)
[2018-09-13 05:11] LABS: ABSOLUTE EOSINOPHILS # (AUTO) 0.2 10^3/uL (0.0-0.6); ABSOLUTE LYMPHOCYTES (AUTO) 1.1 10^3/uL (0.5-4.7); ABSOLUTE MONOCYTES (AUTO) 0.5 10^3/uL (0.1-1.4); BASOPHILS % (AUTO) 0.4 % (0-2); EOSINOPHILS % (AUTO) 3.4 % (0-6); HEMATOCRIT 35.6 % (36.0-47.0); HEMOGLOBIN 11.3 g/dL (12.0-15.5); LYMPHOCYTES % (AUTO) 18.4 % (13-45); MEAN CORPUSCULAR HEMOGLOBIN 25.9 pg (27.0-33.4); MEAN CORPUSCULAR HGB CONC 31.6 g/dL (32.0-36.0); MEAN CORPUSCULAR VOLUME 82 fl (80-97); PLATELET COUNT 205 10^3/uL (150-450); RED BLOOD COUNT 4.34 10^6/uL (3.72-5.28); RED CELL DISTRIBUTION WIDTH 19.3 % (11.5-14.0); SEGMENTED NEUTROPHILS % (AUTO) 68.8 % (42-78); TOTAL CELLS COUNTED % (AUTO) 100 %; WHITE BLOOD COUNT 5.8 10^3/uL (4.0-10.5)
[2018-09-13] MEDS: ACETAMINOPHEN 325 MG TABLET PO PRN (05:53)
[2018-09-13] MEDS: CEFTRIAXONE SODIUM 1,000 MG in DEXTROSE 5%-WATER 50 ML IV SCH (05:58)
[2018-09-13 05:59] LABS: ALANINE AMINOTRANSFERASE 25 U/L (9-52); ALBUMIN 3.9 g/dL (3.5-5.0); ALKALINE PHOSPHATASE 89 U/L (38-126); ANION GAP 11 (5-19); ASPARTATE AMINO TRANSFERASE 16 U/L (14-36); BILIRUBIN,DIRECT 0.4 mg/dL (0.0-0.4); BILIRUBIN,TOTAL 0.4 mg/dL (0.2-1.3); BLOOD UREA NITROGEN 48 mg/dL (7-20); CALCIUM 9.4 mg/dL (8.4-10.2); CARBON DIOXIDE 37 mmol/L (22-30); CHLORIDE 94 mmol/L (98-107); GLUCOSE 292 mg/dL (75-110); POTASSIUM 4.7 mmol/L (3.6-5.0); SODIUM 141.6 mmol/L (137-145); TOTAL PROTEIN 6.2 g/dL (6.3-8.2)
[2018-09-13] MEDS: INSULIN LISPRO 100 UNIT/ML 3 ML VIAL SUBCUT SCH ×3 (08:20→17:43)
[2018-09-13] MEDS: FUROSEMIDE 40 MG TABLET PO SCH (08:20)
[2018-09-13] MEDS: INSULIN REG, HUMAN 100 UNIT/ML 3 ML VIAL (PYX) SUBCUT SCH ×2 (08:21→12:03)
[2018-09-13] MEDS: LETROZOLE 2.5 MG TABLET PO SCH (10:39)
[2018-09-13] MEDS: PANTOPRAZOLE SODIUM 20 MG TABLET.DR PO SCH (10:40)
[2018-09-13] MEDS: FOLIC ACID 1 MG TABLET PO SCH (10:40)
[2018-09-13] MEDS: AMLODIPINE BESYLATE 10 MG TABLET PO SCH (10:41)
[2018-09-13] MEDS: CARVEDILOL 12.5 MG TABLET PO SCH ×2 (10:41→21:52)
[2018-09-13] MEDS: CLOPIDOGREL BISULFATE 75 MG TABLET PO SCH (10:41)
[2018-09-13] MEDS: HYDROCODONE/ACETAMINOPHEN 10-325 MG TABLET PO PRN ×2 (10:42→20:10)
[2018-09-13] MEDS: DOCUSATE SODIUM 100 MG CAPSULE PO SCH ×2 (10:43→17:47)
[2018-09-13] MEDS: HEPARIN SOD (PORCINE) 5,000 UNIT/ML 1 ML SYRINGE SUBCUT SCH ×2 (10:44→21:55)
[2018-09-13] MEDS: POTASSIUM CHLORIDE 10 MEQ CAPSULE.ER PO SCH (10:44)
--- NOTE | 2018-09-13 16:03 | PDOC PROGRESS REPORT ---
Subjective Progress Note for:: 09/13/18 Subjective:: No adverse events overnight. Blood sugars remain near 300 to the mid 300s. I had a very long conversation with her son today and we reviewed her medication dosages. She has been getting about 200 units of insulin a day, which was actually reduced from around 250 units of insulin a day 2 to 3 weeks ago, and her blood sugar has been relatively well controlled with a hemoglobin A1c of 7.2%. At this point she is getting about 120 to 130 of insulin a day. Reason For Visit: ACUTE ENCEPHALOPATHY,SEVERE HYPOCLYCEMIA,DON Physical Exam Vital Signs: Temp Pulse Resp BP Pulse Ox 98.8 F 81 20 149/68 H 100 09/13/18 11:36 09/13/18 11:36 09/13/18 11:36 09/13/18 11:36 09/13/18 11:36 Intake & Output 09/12/18 09/13/18 09/14/18 06:59 06:59 06:59 Intake Total 459 1392 657 Output Total 600 1000 500 Balance -141 392 157 Weight 126 kg General appearance: PRESENT: no acute distress, cooperative, disheveled, morbi dly obese Respiratory exam: PRESENT: decreased breath sounds, symmetrical, unlabored. ABSENT: accessory muscle use, crackles, prolonged expiratory phas, rhonchi, tachypnea, wheezes Cardiovascular exam: PRESENT: RRR, +S1, +S2. ABSENT: diastolic murmur, systolic murmur Pulses: PRESENT: normal carotid pulses Vascular exam: PRESENT: normal capillary refill GI/Abdominal exam: PRESENT: normal bowel sounds, soft. ABSENT: distended, guarding, rebound, tenderness Extremities exam: PRESENT: pedal edema, +2 edema, other - Her son says her legs are chronically swollen. ABSENT: clubbing Musculoskeletal exam: PRESENT: normal inspection. ABSENT: deformity Neurological exam: PRESENT: awake - Drowsy but arousable, oriented to person, oriented to place, oriented to situation Psychiatric exam: PRESENT: flat affect, other - Irritable Skin exam: PRESENT: dry, warm Results Laboratory Results: 09/13/18 04:37 09/13/18 04:37 09/13/18 09/13/18 04:37 04:37 WBC 5.8 RBC 4.34 Hgb 11.3 L Hct 35.6 L MCV 82 MCH 25.9 L MCHC 31.6 L RDW 19.3 H Plt Count 205 Seg Neutrophils % 68.8 Lymphocytes % 18.4 Monocytes % 9.0 Eosinophils % 3.4 Basophils % 0.4 Absolute Neutrophils 4.0 Absolute Lymphocytes 1.1 Absolute Monocytes 0.5 Absolute Eosinophils 0.2 Absolute Basophils 0.0 Sodium 141.6 Potassium 4.7 Chloride 94 L Carbon Dioxide 37 H Anion Gap 11 BUN 48 H Creatinine 1.56 H Est GFR ( Amer) 41 L Est GFR (Non-Af Amer) 34 L Glucose 292 H Calcium 9.4 Magnesium 1.9 Total Bilirubin 0.4 AST 16 ALT 25 Alkaline Phosphatase 89 Total Protein 6.2 L Albumin 3.9 09/06/18 09/06/18 04:43 04:53 Troponin I < 0.012 NT-Pro-B Natriuret Pep 459 Impressions: Lumbar Spine X-Ray 09/06/18 00:00 IMPRESSION: Postoperative and degenerative spine changes. Osteopenia. Chest X-Ray 09/06/18 03:21 IMPRESSION: Moderate mixed interstitial and airpace opacities. Differential diagnosis includes pulmonary edema, multifocal pneumonia, and chronic interstitial lung disease. Head CT 09/06/18 03:21 IMPRESSION: No acute intracranial findings. KUB X-Ray 09/06/18 08:31 IMPRESSION: Stool retention. Mild gaseous distention. Relatively nonobstructive pattern overall. Chest CT 09/06/18 08:32 IMPRESSION: Cardiomegaly with pulmonary vascular congestion. No paco pulmonary edema. Airspace disease in the left lower lobe, pneumonia versus atelectasis. Venous Doppler Study 09/06/18 08:38 IMPRESSION: NO EVIDENCE DVT OR SVT IN THE RIGHT LEG. Assessment and Plan - Diagnosis (1) Acute encephalopathy Is this a current diagnosis for this admission?: Yes Plan: This is a metabolic encephalopathy due to her hypoglycemia, now resolved (2) Hypoglycemia Is this a current diagnosis for this admission?: Yes Plan: Resolved. I suspect that she accidentally [place] too much of her concentrated insulin for 1 of her doses. She recently had the dose reduced and may have drawn up the extra insulin on accident. (3) Insulin dependent diabetes mellitus Is this a current diagnosis for this admission?: Yes Plan: I am going to put her back on the insulin regimen she was on at home and sugars here. If her blood sugars are well enough controlled with her home regimen a consistent carbohydrate diet, she can go home on her home regimen, with the caution to be very particular about how she draws up her insulin. (4) Morbid obesity Is this a current diagnosis for this admission?: No (5) Pneumonia Qualifiers: Pneumonia type: due to unspecified organism Laterality: unspecified laterality Lung location: unspecified part of lung Qualified Code(s): J18.9 - Pneumonia, unspecified organism Is this a current diagnosis for this admission?: Yes Plan: Seen as a possibility on x-ray, and since she is already on antibiotic for her UTI, this is covered as well. (6) UTI (urinary tract infection) Qualifiers: Urinary tract infection type: acute cystitis Is this a current diagnosis for this admission?: Yes Plan: She grew out a pansensitive E. coli, continue current antibiotics. - Time Time Spent with patient: 25-34 minutes
[2018-09-13] MEDS: TRAZODONE HCL 50 MG TABLET PO SCH (21:55)
[2018-09-13] MEDS: QUETIAPINE FUMARATE 100 MG TABLET PO SCH (21:56)
[2018-09-13] MEDS: ATORVASTATIN CALCIUM 40 MG TABLET PO SCH (21:57)
[2018-09-13] MEDS ORDERED: INSULIN REG, HUMAN 100 UNIT/ML 3 ML VIAL (PYX) SUBCUT SCH (22:00)
[2018-09-14] MEDS: PREGABALIN 75 MG CAPSULE PO SCH ×3 (01:10→16:58)
[2018-09-14] MEDS: HYDROCODONE/ACETAMINOPHEN 10-325 MG TABLET PO PRN (03:51)
[2018-09-14] MEDS ORDERED: INSULIN REG, HUMAN 100 UNIT/ML 3 ML VIAL (PYX) SUBCUT SCH ×3 (08:00→22:00)
[2018-09-14] MEDS: INSULIN LISPRO 100 UNIT/ML 3 ML VIAL SUBCUT SCH ×2 (09:48→12:43)
[2018-09-14] MEDS: CLOPIDOGREL BISULFATE 75 MG TABLET PO SCH (09:50)
[2018-09-14] MEDS: AMLODIPINE BESYLATE 10 MG TABLET PO SCH (09:50)
[2018-09-14] MEDS: POTASSIUM CHLORIDE 10 MEQ CAPSULE.ER PO SCH (09:50)
[2018-09-14] MEDS: FOLIC ACID 1 MG TABLET PO SCH (09:50)
[2018-09-14] MEDS: DOCUSATE SODIUM 100 MG CAPSULE PO SCH ×2 (09:51→17:00)
[2018-09-14] MEDS: LETROZOLE 2.5 MG TABLET PO SCH (09:51)
[2018-09-14] MEDS: CARVEDILOL 12.5 MG TABLET PO SCH ×2 (09:51→21:57)
[2018-09-14] MEDS: FUROSEMIDE 40 MG TABLET PO SCH (09:51)
[2018-09-14] MEDS: HEPARIN SOD (PORCINE) 5,000 UNIT/ML 1 ML SYRINGE SUBCUT SCH ×2 (09:52→22:01)
[2018-09-14] MEDS: PANTOPRAZOLE SODIUM 20 MG TABLET.DR PO SCH (09:52)
--- NOTE | 2018-09-14 16:22 | PDOC PROGRESS REPORT ---
Subjective Progress Note for:: 09/14/18 Subjective:: No adverse events overnight. No new complaints. Blood sugars are a little bit better today, but they are still in the 260s up to the 270s. Reason For Visit: ACUTE ENCEPHALOPATHY,SEVERE HYPOCLYCEMIA,DON Physical Exam Vital Signs: Temp Pulse Resp BP Pulse Ox 97.2 F 72 8 L 122/60 97 09/14/18 11:29 09/14/18 14:00 09/14/18 11:29 09/14/18 11:29 09/14/18 11:29 Intake & Output 09/13/18 09/14/18 09/15/18 06:59 06:59 06:59 Intake Total 1392 1097 Output Total 1000 500 Balance 392 597 Weight 126 kg 125 kg General appearance: PRESENT: no acute distress, cooperative, disheveled, morbidly obese Respiratory exam: PRESENT: decreased breath sounds, symmetrical, unlabored. ABSENT: accessory muscle use, crackles, prolonged expiratory phas, rhonchi, tachypnea, wheezes Cardiovascular exam: PRESENT: RRR, +S1, +S2. ABSENT: diastolic murmur, systolic murmur Pulses: PRESENT: normal carotid pulses Vascular exam: PRESENT: normal capillary refill GI/Abdominal exam: PRESENT: normal bowel sounds, soft. ABSENT: distended, guarding, rebound, tenderness Extremities exam: PRESENT: pedal edema, +2 edema, other - Her son says her legs are chronically swollen. ABSENT: clubbing Musculoskeletal exam: PRESENT: normal inspection. ABSENT: deformity Neurological exam: PRESENT: awake - Drowsy but arousable, oriented to person, oriented to place, oriented to situation Psychiatric exam: PRESENT: flat affect, normal mood Skin exam: PRESENT: dry, warm Results Laboratory Results: 09/13/18 04:37 09/13/18 04:37 09/06/18 09/06/18 04:43 04:53 Troponin I < 0.012 NT-Pro-B Natriuret Pep 459 Impressions: Lumbar Spine X-Ray 09/06/18 00:00 IMPRESSION: Postoperative and degenerative spine changes. Osteopenia. Chest X-Ray 09/06/18 03:21 IMPRESSION: Moderate mixed interstitial and airpace opacities. Differential diagnosis includes pulmonary edema, multifocal pneumonia, and chronic interstitial lung disease. Head CT 09/06/18 03:21 IMPRESSION: No acute intracranial findings. KUB X-Ray 09/06/18 08:31 IMPRESSION: Stool retention. Mild gaseous distention. Relatively nonobstructive pattern overall. Chest CT 09/06/18 08:32 IMPRESSION: Cardiomegaly with pulmonary vascular congestion. No paco pulmonary edema. Airspace disease in the left lower lobe, pneumonia versus atelectasis. Venous Doppler Study 09/06/18 08:38 IMPRESSION: NO EVIDENCE DVT OR SVT IN THE RIGHT LEG. Assessment and Plan - Diagnosis (1) Acute encephalopathy Is this a current diagnosis for this admission?: Yes Plan: This is a metabolic encephalopathy due to her hypoglycemia, now resolved (2) Hypoglycemia Is this a current diagnosis for this admission?: Yes Plan: Resolved. I suspect that she accidentally [place] too much of her concentrated insulin for 1 of her doses. She recently had the dose reduced and may have drawn up the extra insulin on accident. (3) Insulin dependent diabetes mellitus Is this a current diagnosis for this admission?: Yes Plan: I going to increase her insulin doses a little bit, adding 5 units to each of her regular insulin doses and 2 units to each of her rapid acting insulin doses. (4) Morbid obesity Is this a current diagnosis for this admission?: No Plan: 09/12/2018-patient has history of morbid obesity BMI is close to 45. Dietary consult was requested. (5) Pneumonia Qualifiers: Pneumonia type: due to unspecified organism Laterality: unspecified laterality Lung location: unspecified part of lung Qualified Code(s): J18.9 - Pneumonia, unspecified organism Is this a current diagnosis for this admission?: Yes Plan: Seen as a possibility on x-ray, and since she is already on antibiotic for her UTI, this is covered as well. (6) UTI (urinary tract infection) Qualifiers: Urinary tract infection type: acute cystitis Is this a current diagnosis for this admission?: Yes Plan: She grew out a pansensitive E. coli, continue current antibiotics. - Time Time Spent with patient: 15-24 minutes
[2018-09-14] MEDS: ACETAMINOPHEN 325 MG TABLET PO PRN (20:29)
[2018-09-14] MEDS: DIPHENHYDRAMINE HCL 50 MG/ML VIAL IV PRN (20:30)
[2018-09-14] MEDS: TRAZODONE HCL 50 MG TABLET PO SCH (21:58)
[2018-09-14] MEDS: QUETIAPINE FUMARATE 100 MG TABLET PO SCH (21:58)
[2018-09-14] MEDS: ATORVASTATIN CALCIUM 40 MG TABLET PO SCH (22:00)
[2018-09-15] MEDS: PREGABALIN 75 MG CAPSULE PO SCH ×3 (01:18→18:02)
[2018-09-15] MEDS: ACETAMINOPHEN 325 MG TABLET PO PRN ×2 (05:22→11:43)
[2018-09-15] MEDS ORDERED: INSULIN REG, HUMAN 100 UNIT/ML 3 ML VIAL (PYX) SUBCUT SCH ×2 (08:00→11:00)
[2018-09-15] MEDS: INSULIN LISPRO 100 UNIT/ML 3 ML VIAL SUBCUT SCH ×3 (08:11→18:05)
[2018-09-15] MEDS: FUROSEMIDE 40 MG TABLET PO SCH ×2 (08:12→10:15)
[2018-09-15] MEDS: AMLODIPINE BESYLATE 10 MG TABLET PO SCH (10:04)
[2018-09-15] MEDS: FOLIC ACID 1 MG TABLET PO SCH (10:04)
[2018-09-15] MEDS: CLOPIDOGREL BISULFATE 75 MG TABLET PO SCH (10:04)
[2018-09-15] MEDS: PANTOPRAZOLE SODIUM 20 MG TABLET.DR PO SCH (10:05)
[2018-09-15] MEDS: LETROZOLE 2.5 MG TABLET PO SCH (10:05)
[2018-09-15] MEDS: CARVEDILOL 12.5 MG TABLET PO SCH (10:05)
[2018-09-15] MEDS: DOCUSATE SODIUM 100 MG CAPSULE PO SCH ×2 (10:05→17:28)
[2018-09-15] MEDS: HEPARIN SOD (PORCINE) 5,000 UNIT/ML 1 ML SYRINGE SUBCUT SCH (10:07)
[2018-09-15] MEDS: POTASSIUM CHLORIDE 10 MEQ CAPSULE.ER PO SCH (10:08)
[2018-09-15 13:37] VITALS: BP 121/57
--- NOTE | 2018-09-15 16:53 | PDOC DISCHARGE SUMMARY ---
General - Admit/Disc Date/PCP Admission Date/Primary Care Provider: 09/06/18 08:15 Discharge Date: 09/15/18 - Discharge Diagnosis (1) Acute encephalopathy Is this a current diagnosis for this admission?: Yes Summary: Due to her hypoglycemia. Now resolved. (2) Hypoglycemia Is this a current diagnosis for this admission?: Yes Summary: Suspect to be due to an accidental overdose of insulin. Mental status improved when her sugars came up. (3) Insulin dependent diabetes mellitus Is this a current diagnosis for this admission?: Yes Summary: We found a dosing regimen for her insulin that seems to keep her glucoses under good control. It is a little unusual but it seems to work for her, and she is been on this regimen at home and her hemoglobin A1c is 7.2%. (4) Morbid obesity Is this a current diagnosis for this admission?: Yes Summary: Strongly encouraged lifestyle modification (5) Pneumonia Is this a current diagnosis for this admission?: Yes Summary: Seen as a possibility on chest x-ray, cultures were negative, she was on empiric antibiotics and completed a course here. (6) UTI (urinary tract infection) Is this a current diagnosis for this admission?: Yes Summary: She grew out a sensitive E. coli and completed a course of antibiotics here. - Additional Information Resuscitation Status: Full Code Discharge Diet: Diabetic Discharge Activity: Supervised Activity Home Medications: Amlodipine Besylate [Norvasc 10 mg Tablet] 10 mg PO DAILY 09/06/18 Atorvastatin Calcium [Lipitor 40 mg Tablet] 40 mg PO QHS 09/06/18 Carvedilol [Coreg 25 mg Tablet] 25 mg PO Q12 09/06/18 Clopidogrel Bisulfate [Plavix 75 mg Tablet] 75 mg PO DAILY 09/06/18 Docusate Sodium [Colace 100 mg Capsule] 100 mg PO BID 09/06/18 Ergocalciferol (Vitamin D2) [Drisdol 50,000 unit (1.25MG) Capsule] 50,000 unit PO ANDRES@1000 09/06/18 Folic Acid [Folvite 1 mg Tablet] 1 mg PO DAILY 09/06/18 Furosemide [Lasix 40 mg Tablet] 40 mg PO QAM 09/06/18 Ibuprofen [Motrin 600 mg Tablet] 600 mg PO BID 09/06/18 Letrozole [Femara 2.5 mg Tablet] 2.5 mg PO DAILY 09/06/18 Multivitamin [Multiple Vitamins] 1 tab PO DAILY 09/06/18 Omeprazole 20 mg PO DAILY 09/06/18 Potassium Chloride [Klor-Con 10 Meq Capsule ER] 10 meq PO DAILY 09/06/18 Pregabalin [Lyrica] 150 mg PO Q8 09/06/18 Quetiapine Fumarate [Seroquel] 300 mg PO QHS 09/06/18 Hydrocodone/Acetaminophen [[place] 10-325 Tablet] 1 each PO Q8HP PRN 09/07/18 Insulin Lispro [Humalog Insulin (Lispro) 100 unit/mL] 22 unit SUBCUT AC unit 09/15/18 Insulin Regular, Human [Humulin R (Reg) Insulin 100 unit/mL] 40 unit SUBCUT QHS unit 09/15/18 Insulin Regular, Human [Humulin R (Reg) Insulin 100 unit/mL] 55 unit SUBCUT ACBRKFST unit 09/15/18 Insulin Regular, Human [Humulin R (Reg) Insulin 100 unit/mL] 55 unit SUBCUT ACLUNCH unit 09/15/18 Trazodone HCl [Desyrel 50 mg Tablet] 50 mg PO QHS tablet 09/15/18 History of Present Illness History of Present Illness: TRISTIAN WILKINSON is a 63 year old female with a past medical history of COPD, sleep apnea, CHF, chronic low back pain, reports history of [place] with NO prior stenting or CABG, and insulin-dependent diabetes mellitus who was brought in due to increasing lethargy at home. Family is at bedside. They report that patient has been very sleepy more than the usual in the past 2 to 3 days. She is visiting from [place]. Earlier this morning, patient was difficult to arouse and was also confused hence they called EMS. She was noted to be severely hypoglycemic with a blood sugar of 27. She requests given D50 and was also given glucagon and had improvement of her mentation. She was placed on BiPAP as her VBG showed significant elevated PCO2. Upon encounter, patient is more awake. She is oriented to person and place. She appears comfortable on BiPAP. Patient family does state that she has been having hypoglycemic issues over the past several days and her insulin was recently decreased by her PCP. They said that she has been eating fine in the past few weeks. She is on a Humalog U-500 regimen. Hospital Course Hospital Course: It was felt that her PCO2 was elevated because of her obstructive sleep apnea and worsened by her hypoglycemia because of her increased lethargy and decreased respiration. We got her sugar up and put on BiPAP for short time and her mental status improved. Was also the possibility of a pneumonia on her chest x-ray and she did grow out a sensitive E. coli from her urine but she did not have any urinary complaints. However, she is completed a course of antibiotics. An attempt was made to use a basal bolus insulin regimen to her blood sugars under control but they were proved very difficult to do so. She was on a bit of an unusual regimen at home but it had been doing a fairly good job keeping her blood sugars under control because her hemoglobin A1c was 7.2%. She said her sugars had been running low and her home physician had recently decreased her dose of insulin to what was reflected on our admission MAR here. We had to be adjusted just a little bit, increasing her Humulin U 500 to 55 units before breakfast and lunch and 40 units at bedtime. We also increased her Humalog to 22 units before meals. This did a pretty good job of getting her blood sugars under control, getting her down into the mid upper 100s. She was awake and alert and had a reassuring examination when I saw her this morning. She was discharged home today in good condition. Physical Exam Vital Signs: Temp Pulse Resp BP Pulse Ox 99.0 F 83 16 121/57 L 99 09/15/18 15:02 09/15/18 15:02 09/15/18 15:02 09/15/18 12:00 09/15/18 15:02 Intake & Output 09/14/18 09/15/18 09/16/18 06:59 06:59 06:59 Intake Total 1097 1409 587 Output Total 500 Balance 597 1409 587 Weight 125 kg 123.3 kg General appearance: PRESENT: no acute distress, cooperative, disheveled, morbidly obese Respiratory exam: PRESENT: decreased breath sounds, symmetrical, unlabored. ABSENT: accessory muscle use, crackles, prolonged expiratory phas, rhonchi, tach ypnea, wheezes Cardiovascular exam: PRESENT: RRR, +S1, +S2. ABSENT: diastolic murmur, systolic murmur Pulses: PRESENT: normal carotid pulses Vascular exam: PRESENT: normal capillary refill GI/Abdominal exam: PRESENT: normal bowel sounds, soft. ABSENT: distended, guarding, rebound, tenderness Extremities exam: PRESENT: pedal edema, +2 edema, other - Her son says her legs are chronically swollen. ABSENT: clubbing Musculoskeletal exam: PRESENT: normal inspection. ABSENT: deformity Neurological exam: PRESENT: awake - Drowsy but arousable, oriented to person, oriented to place, oriented to situation Psychiatric exam: PRESENT: flat affect, normal mood Skin exam: PRESENT: dry, warm Results Laboratory Results: 09/13/18 04:37 09/13/18 04:37 09/06/18 09/06/18 04:43 04:53 Troponin I < 0.012 NT-Pro-B Natriuret Pep 459 Impressions: Lumbar Spine X-Ray 09/06/18 00:00 IMPRESSION: Postoperative and degenerative spine changes. Osteopenia. Chest X-Ray 09/06/18 03:21 IMPRESSION: Moderate mixed interstitial and airpace opacities. Differential diagnosis includes pulmonary edema, multifocal pneumonia, and chronic interstitial lung disease. Head CT 09/06/18 03:21 IMPRESSION: No acute intracranial findings. KUB X-Ray 09/06/18 08:31 IMPRESSION: Stool retention. Mild gaseous distention. Relatively nonobstructive pattern overall. Chest CT 09/06/18 08:32 IMPRESSION: Cardiomegaly with pulmonary vascular congestion. No paco pulmonary edema. Airspace disease in the left lower lobe, pneumonia versus atelectasis. Venous Doppler Study 09/06/18 08:38 IMPRESSION: NO EVIDENCE DVT OR SVT IN THE RIGHT LEG. Qualifiers - * PATIENT BEING DISCHARGED WITH ANY OF THE FOLLOWING DIAGNOSIS: No Acute Heart Failure Is this a Heart Failure Patient?: No Plan Time Spent: Greater than 30 Minutes
== END 2018-09-15 19:20 | disposition home or self-care (01) | DRG 637 ==
LOC: ER 03:05 → EH 08:15 → 3W 20:25
PROVIDERS: ADMIT Internal Medicine; ATTEND Internal Medicine
DX: E11.649 Type 2 diabetes mellitus with hypoglycemia without coma (principal); J18.9 Pneumonia, unspecified organism; J96.02 Acute respiratory failure with hypercapnia; J96.01 Acute respiratory failure with hypoxia; G93.41 Metabolic encephalopathy; N39.0 Urinary tract infection, site not specified; Z68.42 Body mass index [BMI] 45.0-49.9, adult; T38.3X5A Adverse effect of insulin and oral hypoglycemic [antidiabetic] drugs, initial encounter; B96.20 Unspecified Escherichia coli [E. coli] as the cause of diseases classified elsewhere; J44.9 Chronic obstructive pulmonary disease, unspecified; I50.9 Heart failure, unspecified; I11.0 Hypertensive heart disease with heart failure; G47.33 Obstructive sleep apnea (adult) (pediatric); M54.5 Low back pain; E66.01 Morbid (severe) obesity due to excess calories; Y92.098 Other place in other non-institutional residence as the place of occurrence of the external cause; Z79.01 Long term (current) use of anticoagulants; Z79.4 Long term (current) use of insulin; Z79.899 Other long term (current) drug therapy
CPT/HCPCS: 36415; 36600; 51701; 70450; 71045; 71250; 72110; 74018; 80048; 80053; 80307; 81001; 82140; 82803; 82962; 83036; 83735; 83880; 84439; 84443; 84484; 85025; 85027; 87040; 87086; 87088; 87186; 93005; 93010; 93971; 94660; 96365; 96366; 96368; 96375; 99285; J0696; J1200; J1644; J1815; J1885; J1940; J1956; J3490; J7060